=== PATIENT | male | born 1990 | race Caucasian/White ===

== ENCOUNTER → 2019-03-17 09:49 | Outpatient (CLI) | payer OTHER, SELFPAY ==
[2019-03-17 13:49] LABS: Liquefaction Semen YES (YES); Volume Semen 4.5 (1.0-5.0)
[2019-03-17 13:50] LABS: PH Semen 9 (7-8); Sperm Count 26 x10^6/mL (20-150); Sperm Morphology 65 %ABNORM (0-30); Sperm Motility 40% % Motile
== END ==
PROVIDERS: PCP Nurse Practitioner Family; Visit Provider Obstetrics & Gynecology
DX: N46.8 Other male infertility (principal)
CPT/HCPCS: 89320

== ENCOUNTER 2022-08-01 14:20 | Emergency (ER) | payer OTHER, SELFPAY ==
[2022-08-01 14:26] VITALS: BP 144/96; PULSE 101; RESP 16; TEMP 36.7; O2SAT 96; BMI 39.3
[2022-08-01 15:27] LABS: Add Manual Diff / Slide Review NO; Basophils Absolute Auto 100 /uL (0-100); Basophils Percent Auto 1.1 % (0-2); Eosinophils Absolute Auto 100 /uL (0-450); Eosinophils Percent Auto 2.2 % (2-4); Hematocrit 46.9 % (41-53); Hemoglobin 16.6 g/dL (13.5-17.5); Lymphocytes Absolute Auto 1800 /uL (1100-4500); Lymphocytes Percent Auto 27.1 % (25-40); Mean Corpuscular HGB Conc 35.4 % (30-36); Mean Corpuscular Hemoglobin 29.5 PG (26-34); Mean Corpuscular Volume 83.3 fL (80-100); Monocytes Absolute Auto 500 /uL (0-900); Monocytes Percent Auto 7.5 % (3-14); Neutrophils Absolute Auto 4100 /uL (1500-7000); Neutrophils Percent Auto 62.1 % (50-75); Platelet Count 224 X10^3/uL (150-400); Red Blood Cell Count 5.63 X10^6/uL (4.5-5.9); White Blood Cell Count 6.6 X10^3/uL (4.5-11.0)
[2022-08-01 15:45] LABS: Alanine Aminotransferase 311 IU/L (<50); Alkaline Phosphatase 63 U/L (38-126); Aspartate Aminotransferase 132 IU/L (17-59); BUN Creatinine Ratio 13.7 (6-22); Bilirubin Total 1.6 mg/dL (0.2-1.3); Blood Urea Nitrogen 10 mg/dL (9-20); Calcium 9.4 mg/dL (8.4-10.2); Carbon Dioxide 26 mmol/L (22-32); Chloride 101 mmol/L (98-107); Estimated Glomerular Filt Rate > 60 mL/min (>60); Glucose 83 mg/dL (70-100); HEMOLYSIS < 15 (0-50); Lipase 51 U/L (23-300); Potassium 3.8 mmol/L (3.4-5.1); Sodium 139 mmol/L (137-145)
--- NOTE | 2022-08-01 15:58 | DI.US.S_ITS ---
PROCEDURE: US ABDOMEN LIMITED INDICATIONS: ruq PAIN, cholelithiasis vs hepatic steatosis? TECHNIQUE: Real-time scanning was performed of the abdominal and retroperitoneal organs, with image documentation. COMPARISON: None. FINDINGS: Liver: The liver measures 15.5 cm in length and demonstrates increased echogenicity. Gallbladder: The gallbladder wall measures 2 mm in diameter. No stones, sludge, pericholecystic fluid, or sonographic Go sign. Biliary ducts: Intrahepatic bile ducts are non-dilated. Extrahepatic bile duct caliber measures 4 mm. Normal is 6-7 mm or less in diameter, or 10 mm or less post-cholecystectomy. Pancreas: Visualized portions of the pancreas are sonographically normal. IMPRESSION: 1. Increased hepatic echogenicity noted likely related to fatty infiltration of the liver but other sources of hepatocellular disease cannot be excluded. 2. No cholelithiasis or findings to suggest choledocholithiasis or acute cholecystitis. Dictated by: Claudette Jordan M.D. on 08/01/2022 at 17:13 Approved by: Claudette Jordan M.D. on 08/01/2022 at 17:14
--- NOTE | 2022-08-01 16:20 | ED_ITS ---
HPI - Abdominal Pain <MARGARITA Hurley - Last Filed: 08/01/22 19:31> General Chief Complaint: Abdominal Pain Stated Complaint: R ABD/back pain Time Seen by Provider: 08/01/22 15:58 Source: patient Mode of arrival: Ambulatory History of Present Illness HPI narrative: 32-year-old male who presents to the emergency department complaining of right upper quadrant pain with concern for gallbladder issue. He states that he was COVID positive on June 21, 2 Paxlovid, reports that he has not felt right since then, he was seen in the emergency department [facility] on July 14, followed up with his primary care provider, he was told that he has fatty liver. Reports that 4 days ago he had diarrhea for 2 days, has been taking Pepto- Bismol, endorses that his stool is dark but not black or bloody. He reports that it is loose and he thinks that there is grease in it. He expresses dizziness, feeling like he has poor reserve and no energy since his COVID infection. Patient states that he is concerned about pertussis because he has had post-tussive emesis a couple of times. He currently has a cough, congestion, right flank pain and nausea. Related Data Home Medications Medication Instructions Recorded Confirmed fexofenadine 180 mg tablet 180 mg PO QDAY ##0 02/09/11 Previous Rx's Medication Instructions Recorded hydrocodone 5 mg-acetaminophen 325 1 tab PO TID PRN pain #10 tabs 08/01/22 mg tablet hydroxyzine HCl 25 mg tablet 25 mg PO TID PRN anxiety/nausea 08/01/22 #20 tabs omeprazole 20 mg tablet,delayed 40 mg PO DAILY #60 tabs 08/01/22 release ondansetron 4 mg disintegrating 4 mg PO Q6-8H PRN nausea and 08/01/22 tablet vomiting #10 tabs sucralfate 1 gram tablet (Carafate) 1 g PO BID PRN heartburn #30 tabs 08/01/22 Review of Systems <MARGARITA Hurley - Last Filed: 08/01/22 19:31> Review of Systems ROS Unobtainable: All systems reviewed & are unremarkable except as noted in HPI and below Patient History <MARGARITA Hurley - Last Filed: 08/01/22 19:31> Social History Smoking Status: Never smoker Smoking Status: Never smoker Substance Use Type: does not use Exam <MARGARITA Hurley - Last Filed: 08/01/22 19:31> Narrative Exam Narrative: Reviewed vitals signs and nursing notes. General: cooperative, comfortable, in no acute distress, well groomed, afebrile HEENT: symmetrical facial expressions, moist mucous membranes, EOMI, congestion, without sinus tenderness, without anterior cervical lymphadenopathy, normal phonation Cardiovascular: regular rate and rhythm, no peripheral edema, warm extremities Respiratory: normal effort, able to speak in complete sentences, without wheezing, stridor, or abnormal breath sounds. No retractions or tachypnea. GI: abdomen soft, right upper quadrant is tender to palpation right CVA tenderness right sided abdominal tenderness in general without focal tenderness. Nontender to palpation, nondistended, without masses, rebound tenderness or exquisite tenderness with exam. MSK: moves all extremities, neurovascularly intact, no weakness, normal tone Skin: brisk capillary refill, without pallor or erythema Neuro: normal speech and cognition, A&O x3, ambulatory, clear speech Psych: mental status is grossly normal, anxious mood, normal affect, pleasant and cooperative Initial Vital Signs Initial Vital Signs: Vital Signs Temperature 98.1 F 08/01/22 14:26 Pulse Rate 101 H 08/01/22 14:26 Respiratory Rate 16 08/01/22 14:26 Blood Pressure 144/96 H 08/01/22 14:26 Pulse Oximetry 96 08/01/22 14:26 Oxygen Delivery Method 08/01/22 14:26 <Cuauhtemoc Sumner MD - Last Filed: 08/02/22 03:49> Initial Vital Signs Initial Vital Signs: Vital Signs Temperature 98.1 F 08/01/22 14:26 Pulse Rate 101 H 08/01/22 14:26 Respiratory Rate 16 08/01/22 14:26 Blood Pressure 144/96 H 08/01/22 14:26 Pulse Oximetry 96 08/01/22 14:26 Oxygen Delivery Method 08/01/22 14:26 Course <MARGARITA Hurley - Last Filed: 08/01/22 19:31> Orders Ordered: Discontinued Medications Acetaminophen (Acetaminophen 325 Mg Tablet) 975 mg PO NOW ONE Stop: 08/01/22 16:38 Last Admin: 08/01/22 16:48 Dose: 975 mg Documented By: RANDY Elmore Hydrox/Mg Hydrox/Simethicone 20 ml/ Lidocaine HCl 15 ml 0 ml PO NOW ONE Stop: 08/01/22 18:03 Last Admin: 08/01/22 18:18 Dose: 35 ml Documented By: RANDY Hydroxyzine Pamoate (Hydroxyzine Pamoate 25 Mg Capsule) 25 mg PO NOW ONE Stop: 08/01/22 16:38 Last Admin: 08/01/22 16:48 Dose: 25 mg Documented By: RANDY Sodium Chloride (Normal Saline 0.9%) 1,000 mls @ 1,000 mls/hr IV BOLUS ONE Stop: 08/01/22 18:14 Last Infusion: 08/01/22 18:25 Dose: 0 mls/hr Documented By: Admin: 08/01/22 17:26 Dose: 1,000 mls/hr Documented By: DAVID Ketorolac Tromethamine (Ketorolac 30 Mg/Ml Vial) 15 mg IV NOW ONE Stop: 08/01/22 16:01 Last Admin: 08/01/22 16:37 Dose: 15 mg Documented By: RANDY Ondansetron HCl (Ondansetron 4 Mg/2 Ml Inj) 4 mg IV NOW PRN PRN Reason: Nausea And Vomiting Last Admin: 08/01/22 16:37 Dose: 4 mg Documented By: RANDY Pantoprazole Sodium (Pantoprazole 40 Mg Vial) 40 mg IV NOW ONE Stop: 08/01/22 18:03 Last Admin: 08/01/22 18:19 Dose: 40 mg Documented By: RANDY Vital Signs Vital signs: Vital Signs - 8 hr 08/01/22 14:26 08/01/22 18:27 Temperature 98.1 F Pulse Rate 101 H 73 Respiratory Rate 16 18 Blood Pressure 144/96 H 134/85 Pulse Oximetry 96 96 Oxygen Delivery Method Room Air Room Air <Cuauhtemoc Sumner MD - Last Filed: 08/02/22 03:49> Orders Ordered: Discontinued Medications Acetaminophen (Acetaminophen 325 Mg Tablet) 975 mg PO NOW ONE Stop: 08/01/22 16:38 Last Admin: 08/01/22 16:48 Dose: 975 mg Documented By: KM Al Hydrox/Mg Hydrox/Simethicone 20 ml/ Lidocaine HCl 15 ml 0 ml PO NOW ONE Stop: 08/01/22 18:03 Last Admin: 08/01/22 18:18 Dose: 35 ml Documented By: RANDY Hydroxyzine Pamoate (Hydroxyzine Pamoate 25 Mg Capsule) 25 mg PO NOW ONE Stop: 08/01/22 16:38 Last Admin: 08/01/22 16:48 Dose: 25 mg Documented By: RANDY Sodium Chloride (Normal Saline 0.9%) 1,000 mls @ 1,000 mls/hr IV BOLUS ONE Stop: 08/01/22 18:14 Last Infusion: 08/01/22 18:25 Dose: 0 mls/hr Documented By: Admin: 08/01/22 17:26 Dose: 1,000 mls/hr Documented By: DAVID Ketorolac Tromethamine (Ketorolac 30 Mg/Ml Vial) 15 mg IV NOW ONE Stop: 08/01/22 16:01 Last Admin: 08/01/22 16:37 Dose: 15 mg Documented By: RANDY Ondansetron HCl (Ondansetron 4 Mg/2 Ml Inj) 4 mg IV NOW PRN PRN Reason: Nausea And Vomiting Last Admin: 08/01/22 16:37 Dose: 4 mg Documented By: RANDY Pantoprazole Sodium (Pantoprazole 40 Mg Vial) 40 mg IV NOW ONE Stop: 08/01/22 18:03 Last Admin: 08/01/22 18:19 Dose: 40 mg Documented By: RANDY Vital Signs Vital signs: Vital Signs - 8 hr 08/01/22 14:26 08/01/22 18:27 Temperature 98.1 F Pulse Rate 101 H 73 Respiratory Rate 16 18 Blood Pressure 144/96 H 134/85 Pulse Oximetry 96 96 Oxygen Delivery Method Room Air Room Air MDM - Abdominal Pain <Latoya Johnson SAND SCREENER OPERATOR - Last Filed: 08/01/22 19:31> Lab Data Result diagrams: 08/01/22 15:15 08/01/22 15:15 Labs: Lab Results 08/01/22 08/01/22 08/01/22 Range/Units 15:15 15:15 15:15 WBC 6.6 (4.5-11.0) X10^3/uL RBC 5.63 (4.5-5.9) X10^6/uL Hgb 16.6 (13.5-17.5) g/dL Hct 46.9 (41-53) % MCV 83.3 (80-100) fL MCH 29.5 (26-34) PG MCHC 35.4 (30-36) % RDW 14.0 (11.6-14.8) % Plt Count 224 (150-400) X10^3/uL Neut % (Auto) 62.1 (50-75) % Lymph % (Auto) 27.1 (25-40) % [place] % (Auto) 7.5 (3-14) % Eos % (Auto) 2.2 (2-4) % Baso % (Auto) 1.1 (0-2) % Neut # (Auto) 4100 (8590-8957) /uL Lymph # (Auto) 1800 (8526-1767) /uL [place] # (Auto) 500 (0-900) /uL Eos # (Auto) 100 (0-450) /uL Baso # (Auto) 100 (0-100) /uL Sodium 139 (137-145) mmol/L Potassium 3.8 (3.4-5.1) mmol/L Chloride 101 (98-107) mmol/L Carbon Dioxide 26 (22-32) mmol/L BUN 10 (9-20) mg/dL Creatinine 0.73 (0.66-1.25) mg/dL Estimated GFR > 60 (>60) mL/min BUN/Creatinine Ratio 13.7 (6-22) Glucose 83 (70-100) mg/dL Calcium 9.4 (8.4-10.2) mg/dL Total Bilirubin 1.6 H (0.2-1.3) mg/dL Conjugated Bilirubin (0.0-0.3) md/dL Unconjugated Bilirubin (0.0-1.1) mg/dL AST 132 H (17-59) IU/L ALT 311 H (<50) IU/L Alkaline Phosphatase 63 (38-126) U/L C-Reactive Protein < 0.5 (<1.0) mg/dL Total Protein 9.0 H (6.3-8.2) g/dL Lipase 51 (23-300) U/L Urine Color Urine Appearance Urine pH (4.5-8.0) Ur Specific [place] (1.000-1.035) Urine Protein (Negative) Urine Glucose (UA) (Negative) g/dL Urine Ketones (NEGATIVE) Urine Occult Blood (Negative) Urine Nitrate (Negative) Urine Bilirubin (NEGATIVE) Urine Urobilinogen (0.2) E.U./dL Ur Leukocyte Esterase (NEGATIVE) Urine RBC (0-5/HPF) Urine WBC (0-5/HPF) Urine Bacteria (None) Ur Culture Indicated? SARS-CoV-2 (PCR) (Negative) Influenza A (RT-PCR) (NEGATIVE) Influenza B (RT-PCR) (NEGATIVE) RSV (PCR) (Negative) 08/01/22 08/01/22 08/01/22 Range/Units 16:45 18:33 18:41 WBC (4.5-11.0) X10^3/uL RBC (4.5-5.9) X10^6/uL Hgb (13.5-17.5) g/dL Hct (41-53) % MCV (80-100) fL MCH (26-34) PG MCHC (30-36) % RDW (11.6-14.8) % Plt Count (150-400) X10^3/uL Neut % (Auto) (50-75) % Lymph % (Auto) (25-40) % [place] % (Auto) (3-14) % Eos % (Auto) (2-4) % Baso % (Auto) (0-2) % Neut # (Auto) (9681-0528) /uL Lymph # (Auto) (4958-7849) /uL [place] # (Auto) (0-900) /uL Eos # (Auto) (0-450) /uL Baso # (Auto) (0-100) /uL Sodium (137-145) mmol/L Potassium (3.4-5.1) mmol/L Chloride (98-107) mmol/L Carbon Dioxide (22-32) mmol/L BUN (9-20) mg/dL Creatinine (0.66-1.25) mg/dL Estimated GFR (>60) mL/min BUN/Creatinine Ratio (6-22) Glucose (70-100) mg/dL Calcium (8.4-10.2) mg/dL Total Bilirubin 1.5 H (0.2-1.3) mg/dL Conjugated Bilirubin 0.0 (0.0-0.3) md/dL Unconjugated Bilirubin 1.1 (0.0-1.1) mg/dL AST 111 H (17-59) IU/L ALT 268 H (<50) IU/L Alkaline Phosphatase 54 (38-126) U/L C-Reactive Protein (<1.0) mg/dL Total Protein 7.9 (6.3-8.2) g/dL Lipase (23-300) U/L Urine Color Yellow Urine Appearance Clear Urine pH 6.5 (4.5-8.0) Ur Specific [place] 1.010 (1.000-1.035) Urine Protein Negative (Negative) Urine Glucose (UA) Negative (Negative) g/dL Urine Ketones Trace H (NEGATIVE) Urine Occult Blood Negative (Negative) Urine Nitrate Negative (Negative) Urine Bilirubin Negative (NEGATIVE) Urine Urobilinogen 1.0 (0.2) E.U./dL Ur Leukocyte Esterase Negative (NEGATIVE) Urine RBC None seen (0-5/HPF) Urine WBC None seen (0-5/HPF) Urine Bacteria None seen (None) Ur Culture Indicated? Cult not indicated SARS-CoV-2 (PCR) Negative (Negative) Influenza A (RT-PCR) Flu a negative (NEGATIVE) Influenza B (RT-PCR) Flu b negative (NEGATIVE) RSV (PCR) Negative (Negative) Point of care testing: Urine Dip Bedside Urine Glucose Negative Bedside Urine Bilirubin - Negative Bedside Urine Ketone +/- 5 Urine Specific [place] 1.015 Bedside Urine Occult Blood - Negative Bedside Urine pH 6.0 Bedside Urine Protein - Negative Bedside Urine Urobilinogen - Negative Bedside Urine Nitrite - Negative Bedside Urine Leukocytes - Negative Esterase Imaging Data CT scan - abdomen/pelvis: Radiologist's Impression: PROCEDURE:? CT ABDOMEN PELVIS W CON ? INDICATIONS:? rt flank pain, right upper quadrant tenderness mild tenderne ? TECHNIQUE:? After the administration of oral and IV contrast, axial sections were acquired from the lung bases to the pubic symphysis.? Coronal and sagittal reformats were performed.? For radiation dose reduction, the following was used:? automated exposure control, adjustment of mA and/or kV according to patient size. ? COMPARISON:? [facility], , US ABDOMEN LIMITED, 08/01/2022, 16:11.? [facility], , US ABDOMEN LIMITED, 07/27/2022, 9:43.? [facility], CT, CT ABDOMEN PELVIS WITH CONTRAST, 07/14/2022, 18:56. ? FINDINGS:? Image quality:? Excellent.? ? Lung bases:? Unremarkable.? ? Heart:? No significant findings. ? ? ABDOMEN: Liver:? Normal size.? Mild hepatic steatosis.? ? Gallbladder:? Unremarkable.? ? Biliary ducts:? Unremarkable.? ? Pancreas:? Unremarkable.? ? Spleen:? Unremarkable.? ? Adrenal Glands:? Unremarkable.? ? Kidneys and Ureters:? Unremarkable.? ? ? Stomach and Bowel:? Stomach, small bowel loops, and colon are normal in caliber.? Appendix is normal.? There are scattered colonic diverticula.? No acute diverticulitis. Peritoneum:? No abnormal intraperitoneal fluid.? No free air.? ? Ventral Wall: ? No hernia.? Abdominal Nodes:? No retroperitoneal or mesenteric adenopathy by size criteria.? Small mesenteric lymph nodes are seen in the right lower quadrant, nonspecific. Vessels:? Aorta and inferior vena cava are normal in size.? ? PELVIS: Pelvic Organs:? Unremarkable.? ? Bladder:? Unremarkable.? ? Pelvic Nodes: No enlarged lymph nodes.? Miscellaneous: No inguinal hernias are seen. ? ? ? Bones:? Unremarkable.? IMPRESSION:? ? 1. A cause for right side abdominal pain is not identified. 2. Normal appendix. 3. Hepatic steatosis.? ? ? Dictated by: Mera Figueroa M.D. on 08/01/2022 at 16:28 ? ? Approved by: Mera Figueroa M.D. on 08/01/2022 at 16:32 ? US - abdomen: Radiologist's Impression: PROCEDURE:? US ABDOMEN LIMITED ? INDICATIONS:? ruq PAIN, cholelithiasis vs hepatic steatosis? ? TECHNIQUE:? Real-time scanning was performed of the abdominal and retroperitoneal organs, with image documentation.? ? COMPARISON:? None. ? FINDINGS:? ? Liver:? The liver measures 15.5 cm in length and demonstrates increased echogeni city. ? Gallbladder:? The gallbladder wall measures 2 mm in diameter. No stones, sludge, pericholecystic fluid, or sonographic Go sign. ? ? Biliary ducts:? Intrahepatic bile ducts are non-dilated.? Extrahepatic bile duct caliber measures 4 mm.? Normal is 6-7 mm or less in diameter, or 10 mm or less post-cholecystectomy.? ? Pancreas:? Visualized portions of the pancreas are sonographically normal.? ? ? IMPRESSION:? ? 1. Increased hepatic echogenicity noted likely related to fatty infiltration of the liver but other sources of hepatocellular disease cannot be excluded.? ? 2. No cholelithiasis or findings to suggest choledocholithiasis or acute cholecystitis. ? ? ? Dictated by: Claudette Jordan M.D. on 08/01/2022 at 17:13 ? ? Approved by: Cluadette Jordan M.D. on 08/01/2022 at 17:14 ? MDM Narrative Medical decision making narrative: CC: 32-year-old male who presents to the emergency department complaining of right upper quadrant pain with concern for gallbladder issue. He states that he was COVID positive on June 21, 2 Paxlovid, reports that he has not felt right since then, he was seen in the emergency department [facility] on July 14, followed up with his primary care provider, he was told that he has fatty liver. Reports that 4 days ago he had diarrhea for 2 days, has been taking Pepto- Bismol, endorses that his stool is dark but not black or bloody. He reports that it is loose and he thinks that there is grease in it. He expresses dizziness, feeling like he has poor reserve and no energy since his COVID infection. Patient states that he is concerned about pertussis because he has had post-tussive emesis a couple of times. He currently has a cough, congestion, right flank pain and nausea. Differential diagnoses include, but are not limited to: Viral upper respiratory illness including COVID, influenza or RSV, nephrolithiasis cholecystitis, cholelithiasis, pancreatitis, GERD, gastric ulcer, post COVID syndrome hepatic steatosis, acute viral hepatitis. I have reviewed the patient's vital signs and nursing notes as well as prior records if available. Lab test results independently reviewed, pertinent findings: Patient's lab work is significant for elevated liver enzymes including total bilirubin of 1.6, AST of 132, ALT of 311, normal alkaline phosphatase. No prior lab work to compare to. CBC is unremarkable. Urine dip showed trace ketones without other abnormality, respiratory panel is negative for all tested viruses. CRP is not elevated at 0.5. Repeat lab work after 1 L of normal saline shows LFTs Acute hepatitis panel is pending, likely sendout My imaging interpretation: Right upper quadrant ultrasound, CT abdomen pelvis, ultrasound with increased hepatic echogenicity noted related to fatty infiltration liver, no cholelithiasis or findings suggest choledocholithiasis or cholecystitis. Re-evaluations/Ongoing course of care: 1600 patient went to ultrasound and was unavailable in the room, came back at 1620 and I saw him then. Patient is very anxious, states that he is had posttussive emesis, upper respiratory cough and congestion since he was positive for COVID in June 2022. He has a at home, states he is not sleeping well, feels worse every day. States that he is afraid of dying. He had a fever last night of 101 at 02:00. Patient has known fatty liver as this was told to him by [facility] emergency department 2 weeks ago on . Ultrasound was negative for cholelithiasis, cholecystitis or other acute etiology. CT abdo men pelvis was ordered with patient's new assessment findings. 172 CT report is pending, patient was given 1 L of normal saline for dehydration and pain, hydroxyzine, Toradol, Tylenol also given for pain/anxiety 1800 patient expresses improved pain, improved anxiety, states that he is feeling much better, 1 L of normal saline is mostly infused, he expresses dyspepsia, epigastric pain and burning heartburn symptom, states this has been bothersome lately. Abdominal CT shows normal appendix, without identifiable cause for right flank pain or right upper abdominal pain, it does show hepatic steatosis 1900 reassessed patient, he states that he feels much better, denies nausea, denies worsening pain, states that the Zofran helped his symptoms the most and his epigastric pain and burning have gone away. His lab work came back after IV fluid resuscitation showing improved total bilirubin down to 1.5, AST down to 111, ALT down to 268. Low suspicion for acute hepatitis although it remains high in the differential since the lab work has not returned. Patient's symptoms have grossly improved and he is ready for discharge home. He likely has GERD as his heartburn symptom improved with GI cocktail, he was treated with Protonix IV. Will treat him home with 40 mg of omeprazole daily, encourage hydration, prescribed Carafate for epigastric pain. He may benefit from upper endoscopy if his symptoms persist. Hepatic steatosis is most likely the diagnosis however this hepatitis or related to his medications that he has been on. Normal lipase, no evidence of pancreatitis on CT imaging. Encourage patient to follow-up with his PCP, he states that that provider is difficult to get a hold it. Patient's symptoms improved over duration of stay with above-stated therapies. Disposition: see below, along with detailed discharge instructions that have been reviewed with the patient as well as indications for ED re-evaluation and additional outpatient follow-up. Questions are addressed and there is agreement with the plan and for follow-up. Patient is appropriate for outpatient management. MIPS: This encounter doesn't have any diagnosis associated with MIPS criteria. I, MARGARITA Jc, personally performed the services described in the documentation, and it accurately records my words and actions. I collaborated with the ED attending physician for ROSY level 2, 3, and some level 4s as appropriate. <Cuauhtemoc Sumner MD - Last Filed: 08/02/22 03:49> Lab Data Labs: Lab Results 08/01/22 08/01/22 08/01/22 Range/Units 15:15 15:15 15:15 WBC 6.6 (4.5-11.0) X10^3/uL RBC 5.63 (4.5-5.9) X10^6/uL Hgb 16.6 (13.5-17.5) g/dL Hct 46.9 (41-53) % MCV 83.3 (80-100) fL MCH 29.5 (26-34) PG MCHC 35.4 (30-36) % RDW 14.0 (11.6-14.8) % Plt Count 224 (150-400) X10^3/uL Neut % (Auto) 62.1 (50-75) % Lymph % (Auto) 27.1 (25-40) % [place] % (Auto) 7.5 (3-14) % Eos % (Auto) 2.2 (2-4) % Baso % (Auto) 1.1 (0-2) % Neut # (Auto) 4100 (6902-0999) /uL Lymph # (Auto) 1800 (5300-2257) /uL [place] # (Auto) 500 (0-900) /uL Eos # (Auto) 100 (0-450) /uL Baso # (Auto) 100 (0-100) /uL Sodium 139 (137-145) mmol/L Potassium 3.8 (3.4-5.1) mmol/L Chloride 101 (98-107) mmol/L Carbon Dioxide 26 (22-32) mmol/L BUN 10 (9-20) mg/dL Creatinine 0.73 (0.66-1.25) mg/dL Estimated GFR > 60 (>60) mL/min BUN/Creatinine Ratio 13.7 (6-22) Glucose 83 (70-100) mg/dL Calcium 9.4 (8.4-10.2) mg/dL Total Bilirubin 1.6 H (0.2-1.3) mg/dL Conjugated Bilirubin (0.0-0.3) md/dL Unconjugated Bilirubin (0.0-1.1) mg/dL AST 132 H (17-59) IU/L ALT 311 H (<50) IU/L Alkaline Phosphatase 63 (38-126) U/L C-Reactive Protein < 0.5 (<1.0) mg/dL Total Protein 9.0 H (6.3-8.2) g/dL Lipase 51 (23-300) U/L Urine Color Urine Appearance Urine pH (4.5-8.0) Ur Specific [place] (1.000-1.035) Urine Protein (Negative) Urine Glucose (UA) (Negative) g/dL Urine Ketones (NEGATIVE) Urine Occult Blood (Negative) Urine Nitrate (Negative) Urine Bilirubin (NEGATIVE) Urine Urobilinogen (0.2) E.U./dL Ur Leukocyte Esterase (NEGATIVE) Urine RBC (0-5/HPF) Urine WBC (0-5/HPF) Urine Bacteria (None) Ur Culture Indicated? SARS-CoV-2 (PCR) (Negative) Influenza A (RT-PCR) (NEGATIVE) Influenza B (RT-PCR) (NEGATIVE) RSV (PCR) (Negative) 08/01/22 08/01/22 08/01/22 Range/Units 16:45 18:33 18:41 WBC (4.5-11.0) X10^3/uL RBC (4.5-5.9) X10^6/uL Hgb (13.5-17.5) g/dL Hct (41-53) % MCV (80-100) fL MCH (26-34) PG MCHC (30-36) % RDW (11.6-14.8) % Plt Count (150-400) X10^3/uL Neut % (Auto) (50-75) % Lymph % (Auto) (25-40) % [place] % (Auto) (3-14) % Eos % (Auto) (2-4) % Baso % (Auto) (0-2) % Neut # (Auto) (7368-4513) /uL Lymph # (Auto) (2836-7248) /uL [place] # (Auto) (0-900) /uL Eos # (Auto) (0-450) /uL Baso # (Auto) (0-100) /uL Sodium (137-145) mmol/L Potassium (3.4-5.1) mmol/L Chloride (98-107) mmol/L Carbon Dioxide (22-32) mmol/L BUN (9-20) mg/dL Creatinine (0.66-1.25) mg/dL Estimated GFR (>60) mL/min BUN/Creatinine Ratio (6-22) Glucose (70-100) mg/dL Calcium (8.4-10.2) mg/dL Total Bilirubin 1.5 H (0.2-1.3) mg/dL Conjugated Bilirubin 0.0 (0.0-0.3) md/dL Unconjugated Bilirubin 1.1 (0.0-1.1) mg/dL AST 111 H (17-59) IU/L ALT 268 H (<50) IU/L Alkaline Phosphatase 54 (38-126) U/L C-Reactive Protein (<1.0) mg/dL Total Protein 7.9 (6.3-8.2) g/dL Lipase (23-300) U/L Urine Color Yellow Urine Appearance Clear Urine pH 6.5 (4.5-8.0) Ur Specific [place] 1.010 (1.000-1.035) Urine Protein Negative (Negative) Urine Glucose (UA) Negative (Negative) g/dL Urine Ketones Trace H (NEGATIVE) Urine Occult Blood Negative (Negative) Urine Nitrate Negative (Negative) Urine Bilirubin Negative (NEGATIVE) Urine Urobilinogen 1.0 (0.2) E.U./dL Ur Leukocyte Esterase Negative (NEGATIVE) Urine RBC None seen (0-5/HPF) Urine WBC None seen (0-5/HPF) Urine Bacteria None seen (None) Ur Culture Indicated? Cult not indicated SARS-CoV-2 (PCR) Negative (Negative) Influenza A (RT-PCR) Flu a negative (NEGATIVE) Influenza B (RT-PCR) Flu b negative (NEGATIVE) RSV (PCR) Negative (Negative) Point of care testing: Urine Dip Bedside Urine Glucose Negative Bedside Urine Bilirubin - Negative Bedside Urine Ketone +/- 5 Urine Specific [place] 1.015 Bedside Urine Occult Blood - Negative Bedside Urine pH 6.0 Bedside Urine Protein - Negative Bedside Urine Urobilinogen - Negative Bedside Urine Nitrite - Negative Bedside Urine Leukocytes - Negative Esterase Discharge Plan Departure Patient Disposition: Home Clinical Impression: Fatty liver, Elevated liver enzymes, Heartburn Abdominal pain Qualifiers: Abdominal location: unspecified location Qualified Code(s): R10.9 - Unspecified abdominal pain Activity Restrictions/Additional Instructions: *You have been diagnosed with elevated liver enzymes, hepatic steatosis/fatty liver ultrasound and CT without other abnormality. No abnormalities visualized within the gallbladder or surrounding, urine is negative for infection, your liver enzymes and all of those values improved after hydration. Please go home and drink plenty of water, follow-up with your regular doctor about your lab work, have records sent over they are unable to visualize them. 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 Please do not take more than 4 g of Tylenol in 24 hours, 650 mg every 6 hours should be adequate with occasional pain pill as needed. Please avoid ibuprofen if you have heartburn as it can erode the mucosal layer. Use Carafate like Tums or Maalox to help coat your stomach. I hope you feel better soon, I am glad that you came in, glad that we ruled out dangerous things, we will call you if some of the send out labs come back with concern. Please rest as much as you can, you need it to heal. I hope you feel better soon, return for any worsening *What to do: *Please continue to take your regular medications as directed. [x ] New medication prescriptions sent to your pharmacy: [[facility]] [ ] New medication written as a paper prescription [ ] No new medications given *Please follow up with your primary care provider in 2-3 days, call for an appointment. Let them know you were seen in the Emergency Department and that we asked that you be seen for follow-up. We will electronically transmit a record of today's note if your PCP is in our system *If you do not have a primary care provider please contact [phone] to establish care with one of the [facility] primary care providers. *Return to Emergency Department if you should have any new, worsening, or concerning symptoms, such as [fever greater than 101F, chills, worsening pain, persistent vomiting or other bothersome symptoms]. Prescriptions: New omeprazole 20 mg tablet,delayed release (DR/EC) 40 mg PO DAILY Qty: 60 0RF hydroxyzine HCl 25 mg tablet 25 mg PO TID PRN (Reason: anxiety/nausea) Qty: 20 0RF ondansetron 4 mg tablet,disintegrating 4 mg PO Q6-8H PRN (Reason: nausea and vomiting) Qty: 10 0RF sucralfate [Carafate] 1 gram tablet 1 g PO BID PRN (Reason: heartburn) Qty: 30 0RF hydrocodone-acetaminophen 5-325 mg tablet 1 tab PO TID PRN (Reason: pain) Qty: 10 0RF No Action fexofenadine 180 MG tablet 180 mg PO QDAY Qty: 0 Referrals: Richard Kong PA-C [Non-Staff] - 5-7 days Stand Alone Forms: Patient Portal/API <Cuauhtemoc Sumner MD - Last Filed: 08/02/22 03:49> Cosign ED Attending Cosignature Attestation: I was immediately available in the department for consultation. ?This documentation has been reviewed and I agree with assessment and plan. Supervised by Cuauhtemoc Sumner MD
--- NOTE | 2022-08-01 16:28 | DI.CT.S_ITS ---
PROCEDURE: CT ABDOMEN PELVIS W CON INDICATIONS: rt flank pain, right upper quadrant tenderness mild tenderne TECHNIQUE: After the administration of oral and IV contrast, axial sections were acquired from the lung bases to the pubic symphysis. Coronal and sagittal reformats were performed. For radiation dose reduction, the following was used: automated exposure control, adjustment of mA and/or kV according to patient size. COMPARISON: [facility], US, US ABDOMEN LIMITED, 08/01/2022, 16:11. [facility], US, US ABDOMEN LIMITED, 07/27/2022, 9:43. [facility], CT, CT ABDOMEN PELVIS WITH CONTRAST, 07/14/2022, 18:56. FINDINGS: Image quality: Excellent. Lung bases: Unremarkable. Heart: No significant findings. ABDOMEN: Liver: Normal size. Mild hepatic steatosis. Gallbladder: Unremarkable. Biliary ducts: Unremarkable. Pancreas: Unremarkable. Spleen: Unremarkable. Adrenal Glands: Unremarkable. Kidneys and Ureters: Unremarkable. Stomach and Bowel: Stomach, small bowel loops, and colon are normal in caliber. Appendix is normal. There are scattered colonic diverticula. No acute diverticulitis. Peritoneum: No abnormal intraperitoneal fluid. No free air. Ventral Wall: No hernia. Abdominal Nodes: No retroperitoneal or mesenteric adenopathy by size criteria. Small mesenteric lymph nodes are seen in the right lower quadrant, nonspecific. Vessels: Aorta and inferior vena cava are normal in size. PELVIS: Pelvic Organs: Unremarkable. Bladder: Unremarkable. Pelvic Nodes: No enlarged lymph nodes. Miscellaneous: No inguinal hernias are seen. Bones: Unremarkable. IMPRESSION: 1. A cause for right side abdominal pain is not identified. 2. Normal appendix. 3. Hepatic steatosis. Dictated by: Mera Figueroa M.D. on 08/01/2022 at 16:28 Approved by: Mera Figueroa M.D. on 08/01/2022 at 16:32
[2022-08-01] MEDS: KETOROLAC 30 MG/ML VIAL 15 MG IV (16:37)
[2022-08-01] MEDS: ONDANSETRON 4 MG/2 ML INJ IV (16:37)
[2022-08-01] MEDS: hydrOXYzine pamoate 25 MG CAPSULE PO (16:48)
[2022-08-01] MEDS: ACETAMINOPHEN 325 MG TABLET 975 MG PO (16:48)
[2022-08-01] MEDS: SODIUM CHLORIDE 0.9% 1,000 ML 1000 ML IV (17:26)
[2022-08-01 17:54] LABS: Influenza A - CEPHEID Flu A NEGATIVE (NEGATIVE); Influenza B - CEPHEID Flu B NEGATIVE (NEGATIVE); Respiratory Syncytial Virus Negative (Negative)
[2022-08-01 17:55] LABS: COVID-19 CEPHEID 4-PLEX PCR Negative (Negative)
[2022-08-01 17:56] LABS: C-Reactive Protein Quant < 0.5 mg/dL (<1.0)
[2022-08-01] MEDS: MAG HYDROX/ALUMINUM/SIMETH SUS 20 ML, LIDOCAINE VISCOUS 2% 15 ML PO (18:18)
[2022-08-01] MEDS: PANTOPRAZOLE 40 MG VIAL IV (18:19)
[2022-08-01 18:27] VITALS: BP 134/85; PULSE 73; RESP 18; O2SAT 96
[2022-08-01 18:36] LABS: Appearance Urine UA CLEAR; Bilirubin Urine UA NEGATIVE (NEGATIVE); Color Urine UA YELLOW; Glucose Urine UA NEGATIVE (Negative); Ketones Urine UA TRACE (NEGATIVE); Leukocyte Esterase Urine UA NEGATIVE (NEGATIVE); Nitrite Urine UA NEGATIVE (Negative); Occult Blood Urine UA NEGATIVE (Negative); Protein Urine UA NEGATIVE (Negative); pH Urine UA 6.5 (4.5-8.0)
[2022-08-01 18:45] LABS: Bacteria Urine None Seen; Culture Indicated Urine Cult Not Indicated; RBC Urine None Seen (0-5/HPF); WBC Urine None Seen (0-5/HPF)
[2022-08-01 19:06] LABS: Alanine Aminotransferase 268 IU/L (<50); Alkaline Phosphatase 54 U/L (38-126); Aspartate Aminotransferase 111 IU/L (17-59); Bilirubin Total 1.5 mg/dL (0.2-1.3); Bilirubin Unconjugated 1.1 mg/dL (0.0-1.1); Total Protein 7.9 g/dL (6.3-8.2)
[2022-08-01 19:25] VITALS: BP 132/84; PULSE 78; RESP 18; TEMP 36.6; O2SAT 98
[2022-08-03 16:30] LABS: Albumin 4.7 g/dL (3.5-5.0); Albumin Globulin Ratio 1.1 (1.0-2.8); Globulin 4.3 g/dL (1.7-4.1)
[2022-08-03 17:49] LABS: Albumin 4.1 g/dL (3.5-5.0); Albumin Globulin Ratio 1.1 (1.0-2.8); Globulin 3.8 g/dL (1.7-4.1); HEMOLYSIS 24 (0-50)
[2022-08-04 01:36] LABS: HBsAg Screen Negative (Negative); Hepatitis A Antibody IgM Negative (Negative); Hepatitis B Core Antibody IgM Negative (Negative); Hepatitis C Antibody <0.1 s/co ratio (0.0-0.9)
== END 2022-08-01 19:27 | disposition home or self-care (01) ==
PROVIDERS: Emergency Medicine; Emergency Provider Nurse Practitioner Critical Care Medicine; PCP Nurse Practitioner Family
DX: R10.11 Right upper quadrant pain (principal); K76.0 Fatty (change of) liver, not elsewhere classified; R74.8 Abnormal levels of other serum enzymes; R12 Heartburn; Z86.16 Personal history of COVID-19; Z20.822 Contact with and (suspected) exposure to COVID-19
CPT/HCPCS: 0241U; 36415; 74177; 76705; 80053; 80074; 80076; 81001; 81003; 83690; 85025; 86140; 96361; 96374; 96375; 99284; C9113; J1885; J2405; Q9967

== ENCOUNTER 2022-08-19 18:18 | Observation (INO) | payer OTHER, SELFPAY ==
[2022-08-19] VITALS (10 sets, daily range): BP systolic 124–153; BP diastolic 79–104; PULSE 67–103; RESP 18–20; TEMP 36.1–36.9; O2SAT 94–99; BMI 35.2
[2022-08-19 20:04] LABS: Add Manual Diff / Slide Review NO; Basophils Absolute Auto 0 /uL (0-100); Basophils Percent Auto 0.6 % (0-2); Eosinophils Absolute Auto 200 /uL (0-450); Eosinophils Percent Auto 2.4 % (2-4); Hematocrit 45.7 % (41-53); Hemoglobin 16.2 g/dL (13.5-17.5); Lymphocytes Absolute Auto 1700 /uL (1100-4500); Lymphocytes Percent Auto 23.4 % (25-40); Mean Corpuscular HGB Conc 35.4 % (30-36); Mean Corpuscular Hemoglobin 29.5 PG (26-34); Mean Corpuscular Volume 83.4 fL (80-100); Monocytes Absolute Auto 400 /uL (0-900); Monocytes Percent Auto 5.3 % (3-14); Neutrophils Absolute Auto 4900 /uL (1500-7000); Neutrophils Percent Auto 68.3 % (50-75); Platelet Count 207 X10^3/uL (150-400); Red Blood Cell Count 5.47 X10^6/uL (4.5-5.9); Red Cell Distribution Width 13.9 % (11.6-14.8); White Blood Cell Count 7.2 X10^3/uL (4.5-11.0)
[2022-08-19 20:16] LABS: Alanine Aminotransferase 159 IU/L (<50); Albumin 4.4 g/dL (3.5-5.0); Albumin Globulin Ratio 1.2 (1.0-2.8); Alkaline Phosphatase 67 U/L (38-126); Aspartate Aminotransferase 75 IU/L (17-59); BUN Creatinine Ratio 14.9 (6-22); Bilirubin Total 0.9 mg/dL (0.2-1.3); Blood Urea Nitrogen 10 mg/dL (9-20); Calcium 9.3 mg/dL (8.4-10.2); Carbon Dioxide 27 mmol/L (22-32); Chloride 100 mmol/L (98-107); Estimated Glomerular Filt Rate > 60 mL/min (>60); Globulin 3.8 g/dL (1.7-4.1); Glucose 91 mg/dL (70-100); HEMOLYSIS 22 (0-50); Lipase 58 U/L (23-300); Potassium 3.9 mmol/L (3.4-5.1); Sodium 139 mmol/L (137-145); Total Protein 8.2 g/dL (6.3-8.2)
--- NOTE | 2022-08-19 20:35 | ED_ITS ---
HPI - Nausea/Vomiting/Diarrhea General Chief complaint: Nausea/Vomiting/Diarrhea Stated complaint: nausea/tingle in arms/head pain x2 hours Time Seen by Provider: 08/19/22 20:35 Source: patient Mode of arrival: Ambulatory History of Present Illness HPI Narrative: 32-year-old gentleman who had no significant medical problems until COVID in fection in June 2 months ago and the of his son. He complains of significantly increased anxiety for which he is prescribed hydroxyzine and if he becomes nauseated he has Zofran. Did this afternoon he describes sitting in his chair increased nausea he took hydroxyzine the nausea increased he actually had an episode of emesis. He sat back down in his chair took a Zofran and then noted that the left side of his face was numb and felt different his was concerned that the left side of his face was not moving at all while he was talking as well as some mild confusion. Describes some tingling bilaterally in the forearms and hands but on the left side this progressed to significant decreased sensation to the point he could not feel his touching his left arm. Describes a bit of dizziness at the time and some mild chest pressure. Complains of right-sided temporal headache that felt like there was ?liquid rolling around inside his head? he notes that he does not typically get headaches and has never had a migraine headache. By the time he got to the emergency room all of the neurologic symptoms have improved significantly including the mild confusion as reported by his still continues to complain of fatigue. He does note that since his COVID infection in May he is had random fevers, nausea depression and anxiety all new for him. He also notes that this afternoon he had a temperature of 102? at the time of the event. Having no other infectious etiology complaints. Has no abdominal pain vomiting or diarrhea. He has not noticed any palpitations. Never had similar symptoms. Related Data Home Medications Medication Instructions Recorded Confirmed fexofenadine 180 mg tablet 180 mg PO QDAY ##0 02/09/11 Previous Rx's Medication Instructions Recorded hydrocodone 5 mg-acetaminophen 325 1 tab PO TID PRN pain #10 tabs 08/01/22 mg tablet hydroxyzine HCl 25 mg tablet 25 mg PO TID PRN anxiety/nausea 08/01/22 #20 tabs omeprazole 20 mg tablet,delayed 40 mg PO DAILY #60 tabs 08/01/22 release ondansetron 4 mg disintegrating 4 mg PO Q6-8H PRN nausea and 08/01/22 tablet vomiting #10 tabs sucralfate 1 gram tablet (Carafate) 1 g PO BID PRN heartburn #30 tabs 08/01/22 Allergies Allergy/AdvReac Type Severity Reaction Status Date / Time No Known Drug Allergies Allergy Verified 08/19/22 19:43 Review of Systems Review of Systems Narrative: Remainder of complete review of systems is otherwise unremarkable except for that included in the HPI. Patient History Social History Smoking Status: Never smoker Smoking Status: Never smoker alcohol intake frequency: 0-2 drinks per day Substance Use Type: does not use Exam Initial Vital Signs Initial Vital Signs: Vital Signs Temperature 98.5 F 08/19/22 18:25 Pulse Rate 103 H 08/19/22 18:25 Respiratory Rate 20 08/19/22 18:25 Blood Pressure 153/104 H 08/19/22 18:25 Pulse Oximetry 97 08/19/22 18:25 Oxygen Delivery Method 08/19/22 18:25 General: Healthy appearing, in no acute distress. Able to give a complete and coherent history. Well-nourished well-developed HEENT: Moist mucous membranes, normal sclera with reactive pupils, symmetrical and smooth extraocular eye movement. No facial droop Neck: No JVD, supple Respiratory: Lungs are clear to auscultation, no wheezing no rales no rhonchi. Full and symmetrical air movement Cardiac: Regular rate and rhythm no murmurs no bruits Abdomen: Soft, nontender, good bowel tones, no flank pain Skin: Warm and dry, no rashes Neurologic: NIH score is 0 however there are still some subtle findings that are appreciated. He has some minor difficulty lifting his left leg and some minor clumsiness in the left leg and the left hand not significant enough to meet criteria for full ataxia. When standing he is less stable standing on his left foot and has a mildly positive Romberg test. Extremities: No trauma, well perfused Psych: Cooperative, mildly anxious but appropriate insight and affect Course Orders Ordered: ED Orders 08/19/22 19:58 Complete Blood Count AUTO DIFF Stat Comprehensive Metabolic Panel Stat Ethanol (ETOH) Stat Lipase Stat Partial Thromboplastin Time Stat Prothrombin Time INR Stat Troponin & CK Cardiac Panel Stat 08/19/22 20:08 Urinalysis and Microscopic Stat Urine Drug Screen, Rapid Stat 08/19/22 20:52 CT head/brain wo con Stat 08/19/22 20:53 EKG-12 Lead Stat 08/19/22 20:54 CT angio head and neck Stat 08/19/22 21:21 COVID19 -Nasal RAPID/Pre-Proc Stat Vital Signs Vital signs: Vital Signs - 8 hr 08/19/22 18:25 08/19/22 19:33 08/19/22 19:33 Temperature 98.5 F Pulse Rate 103 H 78 Respiratory Rate 20 Blood Pressure 153/104 H 140/88 Pulse Oximetry 97 97 Oxygen Delivery Method Room Air Room Air 08/19/22 20:02 08/19/22 20:03 08/19/22 20:03 Temperature Pulse Rate 74 74 Respiratory Rate Blood Pressure 140/96 H Pulse Oximetry 99 97 Oxygen Delivery Method Room Air Room Air 08/19/22 20:30 08/19/22 20:30 08/19/22 21:00 Temperature Pulse Rate 67 Respiratory Rate Blood Pressure 134/84 152/94 H Pulse Oximetry 96 Oxygen Delivery Method Room Air 08/19/22 21:00 08/19/22 21:30 08/19/22 21:30 Temperature Pulse Rate 81 71 Respiratory Rate Blood Pressure 139/85 Pulse Oximetry 98 95 Oxygen Delivery Method Room Air Room Air MDM - Nausea/Vomiting/Diarrhea Lab Data 08/19/22 19:58 08/19/22 19:58 Labs: Lab Results 08/19/22 08/19/22 08/19/22 Range/Units 19:58 19:58 19:58 WBC 7.2 (4.5-11.0) X10^3/uL RBC 5.47 (4.5-5.9) X10^6/uL Hgb 16.2 (13.5-17.5) g/dL Hct 45.7 (41-53) % MCV 83.4 (80-100) fL MCH 29.5 (26-34) PG MCHC 35.4 (30-36) % RDW 13.9 (11.6-14.8) % Plt Count 207 (150-400) X10^3/uL Neut % (Auto) 68.3 (50-75) % Lymph % (Auto) 23.4 L (25-40) % [place] % (Auto) 5.3 (3-14) % Eos % (Auto) 2.4 (2-4) % Baso % (Auto) 0.6 (0-2) % Neut # (Auto) 4900 (7843-3209) /uL Lymph # (Auto) 1700 (6334-2487) /uL [place] # (Auto) 400 (0-900) /uL Eos # (Auto) 200 (0-450) /uL Baso # (Auto) 0 (0-100) /uL PT 12.9 H (10.1-12.7) SECONDS INR 1.1 (0.9-1.3) APTT 32 (26-36) SECONDS Sodium 139 (137-145) mmol/L Potassium 3.9 (3.4-5.1) mmol/L Chloride 100 (98-107) mmol/L Carbon Dioxide 27 (22-32) mmol/L BUN 10 (9-20) mg/dL Creatinine 0.67 (0.66-1.25) mg/dL Estimated GFR > 60 (>60) mL/min BUN/Creatinine Ratio 14.9 (6-22) Glucose 91 (70-100) mg/dL Calcium 9.3 (8.4-10.2) mg/dL Total Bilirubin 0.9 (0.2-1.3) mg/dL AST 75 H (17-59) IU/L ALT 159 H (<50) IU/L Alkaline Phosphatase 67 (38-126) U/L Total Creatine Kinase (55-170) U/L CK-MB (CK-2) (<2.37) ng/mL CK-MB (CK-2) Rel Index (1.5-5.0) % Troponin I (0.01-0.034) ng/mL Total Protein 8.2 (6.3-8.2) g/dL Albumin 4.4 (3.5-5.0) g/dL Globulin 3.8 (1.7-4.1) g/dL Albumin/Globulin Ratio 1.2 (1.0-2.8) Lipase 58 (23-300) U/L Urine Color Urine Appearance Urine pH (4.5-8.0) Ur Specific [place] (1.000-1.035) Urine Protein (Negative) Urine Glucose (UA) (Negative) g/dL Urine Ketones (NEGATIVE) Urine Occult Blood (Negative) Urine Nitrate (Negative) Urine Bilirubin (NEGATIVE) Urine Urobilinogen (0.2) E.U./dL Ur Leukocyte Esterase (NEGATIVE) Urine RBC (0-5/HPF) Urine WBC (0-5/HPF) Urine Bacteria (None) Ur Culture Indicated? Micro UA Comment U Opiates 300ng/mL cut (Negative) Ur Oxycodone Screen (Negative) Urine Methadone Screen (Negative) Ur Barbiturates Screen (Negative) U Tricyclic Antidepress (Negative) Ur Phencyclidine Scrn (Negative) Ur Amphetamines Screen (Negative) U Methamphetamines Scrn (Negative) Ur MDMA Scrn (Ecstasy) (Negative) U Benzodiazepines Scrn (Negative) Urine Cocaine Screen (Negative) U Marijuana (THC) Screen (Negative) Ethyl Alcohol ( - 10) mg/dL SARS-CoV-2 (PCR) (Negative) 08/19/22 08/19/22 08/19/22 Range/Units 19:58 20:08 20:08 WBC (4.5-11.0) X10^3/uL RBC (4.5-5.9) X10^6/uL Hgb (13.5-17.5) g/dL Hct (41-53) % MCV (80-100) fL MCH (26-34) PG MCHC (30-36) % RDW (11.6-14.8) % Plt Count (150-400) X10^3/uL Neut % (Auto) (50-75) % Lymph % (Auto) (25-40) % [place] % (Auto) (3-14) % Eos % (Auto) (2-4) % Baso % (Auto) (0-2) % Neut # (Auto) (8660-6075) /uL Lymph # (Auto) (8601-7038) /uL [place] # (Auto) (0-900) /uL Eos # (Auto) (0-450) /uL Baso # (Auto) (0-100) /uL PT (10.1-12.7) SECONDS INR (0.9-1.3) APTT (26-36) SECONDS Sodium (137-145) mmol/L Potassium (3.4-5.1) mmol/L Chloride (98-107) mmol/L Carbon Dioxide (22-32) mmol/L BUN (9-20) mg/dL Creatinine (0.66-1.25) mg/dL Estimated GFR (>60) mL/min BUN/Creatinine Ratio (6-22) Glucose (70-100) mg/dL Calcium (8.4-10.2) mg/dL Total Bilirubin (0.2-1.3) mg/dL AST (17-59) IU/L ALT (<50) IU/L Alkaline Phosphatase (38-126) U/L Total Creatine Kinase 137 (55-170) U/L CK-MB (CK-2) 0.55 (<2.37) ng/mL CK-MB (CK-2) Rel Index 0.4 L (1.5-5.0) % Troponin I < 0.012 (0.01-0.034) ng/mL Total Protein (6.3-8.2) g/dL Albumin (3.5-5.0) g/dL Globulin (1.7-4.1) g/dL Albumin/Globulin Ratio (1.0-2.8) Lipase (23-300) U/L Urine Color Yellow Urine Appearance Clear Urine pH 7.0 (4.5-8.0) Ur Specific [place] 1.010 (1.000-1.035) Urine Protein Negative (Negative) Urine Glucose (UA) Negative (Negative) g/dL Urine Ketones Negative (NEGATIVE) Urine Occult Blood Negative (Negative) Urine Nitrate Negative (Negative) Urine Bilirubin Negative (NEGATIVE) Urine Urobilinogen 0.2 (0.2) E.U./dL Ur Leukocyte Esterase Negative (NEGATIVE) Urine RBC None seen (0-5/HPF) Urine WBC None seen (0-5/HPF) Urine Bacteria None seen (None) Ur Culture Indicated? Cult not indicated Micro UA Comment Microscopic normal U Opiates 300ng/mL cut Negative (Negative) Ur Oxycodone Screen Negative (Negative) Urine Methadone Screen Negative (Negative) Ur Barbiturates Screen Negative (Negative) U Tricyclic Antidepress Negative (Negative) Ur Phencyclidine Scrn Negative (Negative) Ur Amphetamines Screen Negative (Negative) U Methamphetamines Scrn Negative (Negative) Ur MDMA Scrn (Ecstasy) Negative (Negative) U Benzodiazepines Scrn Negative (Negative) Urine Cocaine Screen Negative (Negative) U Marijuana (THC) Screen Negative (Negative) Ethyl Alcohol < 10 ( - 10) mg/dL SARS-CoV-2 (PCR) (Negative) 08/19/22 Range/Units 21:21 WBC (4.5-11.0) X10^3/uL RBC (4.5-5.9) X10^6/uL Hgb (13.5-17.5) g/dL Hct (41-53) % MCV (80-100) fL MCH (26-34) PG MCHC (30-36) % RDW (11.6-14.8) % Plt Count (150-400) X10^3/uL Neut % (Auto) (50-75) % Lymph % (Auto) (25-40) % [place] % (Auto) (3-14) % Eos % (Auto) (2-4) % Baso % (Auto) (0-2) % Neut # (Auto) (8383-7060) /uL Lymph # (Auto) (6960-9986) /uL [place] # (Auto) (0-900) /uL Eos # (Auto) (0-450) /uL Baso # (Auto) (0-100) /uL PT (10.1-12.7) SECONDS INR (0.9-1.3) APTT (26-36) SECONDS Sodium (137-145) mmol/L Potassium (3.4-5.1) mmol/L Chloride (98-107) mmol/L Carbon Dioxide (22-32) mmol/L BUN (9-20) mg/dL Creatinine (0.66-1.25) mg/dL Estimated GFR (>60) mL/min BUN/Creatinine Ratio (6-22) Glucose (70-100) mg/dL Calcium (8.4-10.2) mg/dL Total Bilirubin (0.2-1.3) mg/dL AST (17-59) IU/L ALT (<50) IU/L Alkaline Phosphatase (38-126) U/L Total Creatine Kinase (55-170) U/L CK-MB (CK-2) (<2.37) ng/mL CK-MB (CK-2) Rel Index (1.5-5.0) % Troponin I (0.01-0.034) ng/mL Total Protein (6.3-8.2) g/dL Albumin (3.5-5.0) g/dL Globulin (1.7-4.1) g/dL Albumin/Globulin Ratio (1.0-2.8) Lipase (23-300) U/L Urine Color Urine Appearance Urine pH (4.5-8.0) Ur Specific [place] (1.000-1.035) Urine Protein (Negative) Urine Glucose (UA) (Negative) g/dL Urine Ketones (NEGATIVE) Urine Occult Blood (Negative) Urine Nitrate (Negative) Urine Bilirubin (NEGATIVE) Urine Urobilinogen (0.2) E.U./dL Ur Leukocyte Esterase (NEGATIVE) Urine RBC (0-5/HPF) Urine WBC (0-5/HPF) Urine Bacteria (None) Ur Culture Indicated? Micro UA Comment U Opiates 300ng/mL cut (Negative) Ur Oxycodone Screen (Negative) Urine Methadone Screen (Negative) Ur Barbiturates Screen (Negative) U Tricyclic Antidepress (Negative) Ur Phencyclidine Scrn (Negative) Ur Amphetamines Screen (Negative) U Methamphetamines Scrn (Negative) Ur MDMA Scrn (Ecstasy) (Negative) U Benzodiazepines Scrn (Negative) Urine Cocaine Screen (Negative) U Marijuana (THC) Screen (Negative) Ethyl Alcohol ( - 10) mg/dL SARS-CoV-2 (PCR) Negative (Negative) Point of Care Testing Glucose POC 82 Urine Dip Bedside Urine Glucose Negative Bedside Urine Bilirubin - Negative Bedside Urine Ketone - Negative Urine Specific [place] 1.010 Bedside Urine Occult Blood - Negative Bedside Urine pH 7.0 Bedside Urine Protein - Negative Bedside Urine Urobilinogen - Negative Bedside Urine Nitrite - Negative Bedside Urine Leukocytes - Negative Esterase Imaging Data CT Head: Radiologist's Impression: FINDINGS:? Image quality:? Excellent.? ? CSF spaces:? Basal cisterns are patent.? No extra-axial fluid collections.? Ventricles are normal in size and shape.? ? Brain:? No intracranial hemorrhage, mass, or mass effect.? Lamb-white matter interface appears preserved.? ? Skull and face:? Calvarium and visualized facial bones are intact, without suspicious lesions.? ? Sinuses:? Visualized sinuses demonstrate a sinus retention cyst or mucosal polyp within the left maxillary sinus.? Mastoid air cells are clear. ? IMPRESSION:? ? 1. No acute intracranial abnormality.? ? ? Dictated by: Aquiles Beltran M.D. on 08/19/2022 at 21:26 ? ? CTA head and neck: Radiologist's Impression: FINDINGS:? Image quality:? Excellent.? ? BRAIN:? CSF spaces:? Basal cisterns are patent.? No extra-axial fluid collections.? Ventricles are normal in size and shape.? ? Brain:? No intracranial hematoma collections, mass, or mass effect.? Lamb-white matter interface appears preserved.? No abnormal intracranial enhancement.? ? Skull and face:? Calvarium and facial bones appear intact, without suspicious lesions.? Orbits appear normal.? ? Sinuses:? Sinuses and mastoids are clear.? ? HEAD CT ANGIOGRAPHY:? Anterior circulation:? Intracranial internal carotid arteries are normal in size and appear patent bilaterally.? There is mild atherosclerotic calcification along the cavernous segments of the internal carotid arteries.? The paired anterior cerebral arteries appear patent bilaterally.? The anterior communicating artery also appears patent. The middle cerebral arteries appear patent bilaterally.? No high-grade stenosis, occlusion, or filling defects.? No cerebral aneurysms identified. ? Posterior circulation:? Visualized portions of the vertebral arteries demonstrate normal caliber, and join to form a patent basilar artery.? The posterior cerebral arteries appears patent bilaterally.? No high-grade stenosis, occlusion, or filling defects.? No cerebral aneurysms identified. ? NECK CT ANGIOGRAPHY:? Carotid system:? The great vessels demonstrate a conventional anatomy as they arise from the aortic arch.? The origins of the common carotid arteries appear patent.? The common carotid arteries demonstrate normal caliber and courses.? The bifurcation regions are both widely patent.? The internal carotid arteries demonstrate normal calibers and courses.? ? Posterior circulation:? The origins of the vertebral arteries both appear patent.? The more superior extracranial portions of both vertebral arteries also demonstrate normal courses and calibers.? They join to form a patent basilar artery.? ? Soft tissues:? Visualized neck soft tissues demonstrate no suspicious abnormalities.? ? Bones:? No suspicious bony lesions.? Visualized cervical spine demonstrates straightening of the cervical lordosis.? ? IMPRESSION:? ? 1. No high-grade stenosis or occlusion of the central intracranial arteries. ? 2. No high-grade stenosis or occlusion of the head and neck arteries.? The carotid bulbs are widely patent.? ? Any quantitative measurements of stenosis were performed using NASCET criteria.? ? ? Dictated by: Aquiles Beltran M.D. on 08/19/2022 at 21:27 ? ? ECG Data Interpretation: Sinus rhythm at a rate of 75 Normal intervals, normal axis No acute ischemic changes MDM Narrative Medical decision making narrative: CC: 1-1/2 hours of left-sided paresthesia mild contusion. This is a new pr oblem acute onset uncertain diagnosis with potential for significant morbidity and mortality Complicating co-morbidities: Anxiety, obesity Corroborating data: Data collected from: patient, Differential considered: Stroke, TIA, complex migraine, brain tumor, infectious etiology/meningitis Exam documented above, pertinent findings include: No nuchal rigidity, subtle changes in fine motor skills/ataxia and weakness on the left side that does not meet criteria for full NIH score. NIH score is 0 Lab Test results independently reviewed as above. Pertinent findings: CBC is unremarkable Chemistries are reassuring Independently reviewed EKG as above Imaging studies independently reviewed: CT scan of the head does not show any any acute bleeding or gross abnormalities. CT angiogram of the head and neck shows no large vessel occlusions or acute stenosis 1030pm patient is updated on all findings and plan. Discussion: 32-year-old gentleman with approximately an hour and a half of facial weakness, paresthesia left side with mild right-sided headache in the setting of no headache history. Symptoms have essentially resolved upon arrival in the emergency department with very subtle findings on provocative physical exam. At the age of 32 I am quite concerned for TIA versus stroke. Imaging initially is negative I believe he deserves an MRI as well as a cardiac echo to make sure that he does not have septal defect that might have caused a mild stroke or TIA. All this is reviewed with patient and his . I have recommended hospitalization for continued workup and observation overnight he is agreeable to this. 10:35 Care is discussed with the hospitalist service and patient will be admitted observation status for continued workup Discharge Plan Departure Patient Disposition: Admitted as Observation Clinical Impression: Brain TIA Prescriptions: No Action fexofenadine 180 MG tablet 180 mg PO QDAY Qty: 0 omeprazole 20 mg tablet,delayed release (DR/EC) 40 mg PO DAILY Qty: 60 0RF hydroxyzine HCl 25 mg tablet 25 mg PO TID PRN (Reason: anxiety/nausea) Qty: 20 0RF ondansetron 4 mg tablet,disintegrating 4 mg PO Q6-8H PRN (Reason: nausea and vomiting) Qty: 10 0RF sucralfate [Carafate] 1 gram tablet 1 g PO BID PRN (Reason: heartburn) Qty: 30 0RF hydrocodone-acetaminophen 5-325 mg tablet 1 tab PO TID PRN (Reason: pain) Qty: 10 0RF Referrals: Raiza Balderas ARNP [Primary Care Provider] -
--- NOTE | 2022-08-19 20:52 | DI.CT.S_ITS ---
PROCEDURE: CT HEAD/BRAIN WO CON INDICATIONS: Left side deficits 3:45 today, resolved now TECHNIQUE: Noncontrast 4.5 mm thick angled axial sections acquired from the foramen magnum to the vertex, with coronal and sagittal reformats. For radiation dose reduction, the following was used: automated exposure control, adjustment of mA and/or kV according to patient size. COMPARISON: None. FINDINGS: Image quality: Excellent. CSF spaces: Basal cisterns are patent. No extra-axial fluid collections. Ventricles are normal in size and shape. Brain: No intracranial hemorrhage, mass, or mass effect. Lamb-white matter interface appears preserved. Skull and face: Calvarium and visualized facial bones are intact, without suspicious lesions. Sinuses: Visualized sinuses demonstrate a sinus retention cyst or mucosal polyp within the left maxillary sinus. Mastoid air cells are clear. IMPRESSION: 1. No acute intracranial abnormality. Dictated by: Aquiles Beltran M.D. on 08/19/2022 at 21:26 Approved by: Aquiles Beltran M.D. on 08/19/2022 at 21:27
--- NOTE | 2022-08-19 20:54 | DI.CT.S_ITS ---
PROCEDURE: CT ANGIO HEAD AND NECK INDICATIONS: suspected stroke TECHNIQUE: After the administration of intravenous contrast, 1 mm thick sections acquired from the aortic arch through the [place] of [place]. Post-contrast 4.5 mm thick sections then re-acquired from the foramen magnum to the vertex. 3-dimensional ctgipky-kgzwvhhps-fnqcpfibzz (MIP) and/or volume rendering reformats were acquired of the central intracranial vasculature and neck separately. For radiation dose reduction, the following was used: automated exposure control, adjustment of mA and/or kV according to patient size. COMPARISON: None. FINDINGS: Image quality: Excellent. BRAIN: CSF spaces: Basal cisterns are patent. No extra-axial fluid collections. Ventricles are normal in size and shape. Brain: No intracranial hematoma collections, mass, or mass effect. Lamb-white matter interface appears preserved. No abnormal intracranial enhancement. Skull and face: Calvarium and facial bones appear intact, without suspicious lesions. Orbits appear normal. Sinuses: Sinuses and mastoids are clear. HEAD CT ANGIOGRAPHY: Anterior circulation: Intracranial internal carotid arteries are normal in size and appear patent bilaterally. There is mild atherosclerotic calcification along the cavernous segments of the internal carotid arteries. The paired anterior cerebral arteries appear patent bilaterally. The anterior communicating artery also appears patent. The middle cerebral arteries appear patent bilaterally. No high-grade stenosis, occlusion, or filling defects. No cerebral aneurysms identified. Posterior circulation: Visualized portions of the vertebral arteries demonstrate normal caliber, and join to form a patent basilar artery. The posterior cerebral arteries appears patent bilaterally. No high-grade stenosis, occlusion, or filling defects. No cerebral aneurysms identified. NECK CT ANGIOGRAPHY: Carotid system: The great vessels demonstrate a conventional anatomy as they arise from the aortic arch. The origins of the common carotid arteries appear patent. The common carotid arteries demonstrate normal caliber and courses. The bifurcation regions are both widely patent. The internal carotid arteries demonstrate normal calibers and courses. Posterior circulation: The origins of the vertebral arteries both appear patent. The more superior extracranial portions of both vertebral arteries also demonstrate normal courses and calibers. They join to form a patent basilar artery. Soft tissues: Visualized neck soft tissues demonstrate no suspicious abnormalities. Bones: No suspicious bony lesions. Visualized cervical spine demonstrates straightening of the cervical lordosis. IMPRESSION: 1. No high-grade stenosis or occlusion of the central intracranial arteries. 2. No high-grade stenosis or occlusion of the head and neck arteries. The carotid bulbs are widely patent. Any quantitative measurements of stenosis were performed using NASCET criteria. Dictated by: Aquiles Beltran M.D. on 08/19/2022 at 21:27 Approved by: Aquiles Beltran M.D. on 08/19/2022 at 21:30
[2022-08-19 21:13] LABS: Appearance Urine UA CLEAR; Bilirubin Urine UA NEGATIVE (NEGATIVE); Color Urine UA YELLOW; Glucose Urine UA NEGATIVE (Negative); Ketones Urine UA NEGATIVE (NEGATIVE); Leukocyte Esterase Urine UA NEGATIVE (NEGATIVE); Nitrite Urine UA NEGATIVE (Negative); Occult Blood Urine UA NEGATIVE (Negative); Protein Urine UA NEGATIVE (Negative); Urobilinogen Urine UA 0.2 E.U./dL (0.2)
[2022-08-19 21:29] LABS: UR Morphine/Opiate cutoff 300 Negative (Negative); Ur Creatinine Normal (Normal); Ur Specific Gravity Normal (Normal); Urine Amphetamines Negative (Negative); Urine Barbiturates Negative (Negative); Urine Benzodiazepines Negative (Negative); Urine Cocaine Negative (Negative); Urine MDMA Negative (Negative); Urine Methadone Negative (Negative); Urine Methamphetamines Negative (Negative); Urine Oxycodone Negative (Negative); Urine Phencyclidine Negative (Negative); Urine Tetrahydrocannabinol Negative (Negative); Urine Tricyclic Antidepressant Negative (Negative); Urine pH Normal (Normal)
[2022-08-19 21:36] LABS: Bacteria Urine None Seen; Culture Indicated Urine Cult Not Indicated; RBC Urine None Seen (0-5/HPF); Urine Comments Microscopic Normal; WBC Urine None Seen (0-5/HPF)
[2022-08-19 21:45] LABS: COVID19 -Nasal RAPID Negative (Negative)
[2022-08-19 21:59] LABS: INR 1.1 (0.9-1.3); Prothrombin Time 12.9 SECONDS (10.1-12.7)
[2022-08-19 22:02] LABS: PTT Partial Thromboplastin Tim 32 SECONDS (26-36)
[2022-08-19 22:04] LABS: Creatine Kinase 137 U/L (55-170); Ethanol (ETOH) < 10 mg/dL
[2022-08-19 22:16] LABS: Troponin I < 0.012 ng/mL (0.01-0.034)
[2022-08-19 22:19] LABS: CKMB % Relative Index 0.4 % (1.5-5.0); Creatine Kinase MB 0.55 ng/mL (<2.37)
--- NOTE | 2022-08-19 23:22 | PC.NURSE ---
Received patient from ED in no distress. Patient awake alert with no complaints.
--- NOTE | 2022-08-19 23:42 | P.HP_ITS ---
History of Present Illness History of Present Illness Date Patient Seen: 08/19/22 Time Patient Seen: 23:42 Chief complaint: Suspected TIA vs cervical mylomacia Narrative: Ankit Duff is a 32 y.o. adopted male with GERD, BEY, and asthma who with his fiance was visiting in [place] when he was seated and developed nausea and vomiting after having taken a dose of hydraxazine. He developed numbing and tingling of the left side of his face, girlfriend noted he seemed to have a facial droop on the left side, stated he was also numb and weak on his upper and lower extremities. Denies blurred vision, h/a, difficulty swallowing, shortness of breath, chest pain, or loss of bowel or bladder control. He states he has been under a great deal of stress since June when he contracted COVID on the , his fiance's baby was born on June 30 describing it as traumatic, she coded purple and had to undergo an emergent . States a friend of his suddenly in his sleep in July. He has recently been diagnosed with anxiety and depression. Patient denies any neck or back injuries but states a remote history of concussions and injuries related to snowboarding and skating. FH: patient is adopted, father was an undocumented immigrant and states his mother was a prostitute and believe she has . In the ED, his symptoms resolved, though his fiance stated he seemed to be confused. CT of the head and CTA of the head and neck ordered in the ED were both negative for any acute intracranial process. He is afebrile, blood pressure 137/80 heart rate 78 respiratory rate 18 oxygen saturation 95% on room air he weighs 117.9 kg with a BMI of 35. CBC is unremarkable, BMP is unremarkable he does have elevated liver enzymes AST 75 ALT 159 UA and urine toxicology both negative viral panel and COVID-19 PCR are also negative. Patient History Medical History (Updated 08/20/22 @ 00:10 by MARGARITA Krishna) GERD (gastroesophageal reflux disease) BEY (nonalcoholic steatohepatitis) Family & Social History Family History (Updated 08/20/22 @ 00:11 by MARGARITA Krishna) Other Adopted Social History: household members significant other Prior Living Arrangements House Safety & Behavioral: Feels Safe in Current Yes Environment Been Physically Hurt or No Threatened By a Person Tobacco & Substance use: Smoking Status Never smoker alcohol intake frequency 0-2 drinks per day Substance Use Type does not use Meds Home Medications and Allergies Home Medications Medication Instructions Recorded Confirmed Type fexofenadine 180 mg tablet 180 mg PO QDAY ##0 02/09/11 History hydrocodone 5 mg-acetaminophen 325 1 tab PO TID PRN pain #10 tabs 08/01/22 Rx mg tablet hydroxyzine HCl 25 mg tablet 25 mg PO TID PRN anxiety/nausea 08/01/22 Rx #20 tabs omeprazole 20 mg tablet,delayed 40 mg PO DAILY #60 tabs 08/01/22 Rx release ondansetron 4 mg disintegrating 4 mg PO Q6-8H PRN nausea and 08/01/22 Rx tablet vomiting #10 tabs sucralfate 1 gram tablet (Carafate) 1 g PO BID PRN heartburn #30 tabs 08/01/22 Rx Allergies Allergy/AdvReac Type Severity Reaction Status Date / Time No Known Drug Allergies Allergy Verified 08/19/22 19:43 Review of Systems Review of Systems ROS: Yes All systems reviewed with the patient and are negative except as otherwise documented Exam Vital Signs (past 8 hours): - 08/19/22 18:25 08/19/22 19:33 08/19/22 19:33 Temperature 98.5 F Pulse Rate 103 H 78 Respiratory Rate 20 Blood Pressure 153/104 H 140/88 Pulse Oximetry 97 97 Oxygen Delivery Method Room Air Room Air 08/19/22 20:02 08/19/22 20:03 08/19/22 20:03 Temperature Pulse Rate 74 74 Respiratory Rate Blood Pressure 140/96 H Pulse Oximetry 99 97 Oxygen Delivery Method Room Air Room Air 08/19/22 20:30 08/19/22 20:30 08/19/22 21:00 Temperature Pulse Rate 67 Respiratory Rate Blood Pressure 134/84 152/94 H Pulse Oximetry 96 Oxygen Delivery Method Room Air 08/19/22 21:00 08/19/22 21:30 08/19/22 21:30 Temperature Pulse Rate 81 71 Respiratory Rate Blood Pressure 139/85 Pulse Oximetry 98 95 Oxygen Delivery Method Room Air Room Air 08/19/22 22:00 08/19/22 22:00 08/19/22 22:30 Temperature Pulse Rate 68 Respiratory Rate Blood Pressure 134/84 124/79 Pulse Oximetry 94 Oxygen Delivery Method Room Air 08/19/22 22:30 08/19/22 23:00 Temperature 97.0 F L Pulse Rate 69 78 Respiratory Rate 18 Blood Pressure 137/80 Pulse Oximetry 94 95 Oxygen Delivery Method Room Air Oxygen Delivery Method Room Air Narrative Exam Narrative: Gen: Alert, oriented, obese 32 y.o. male, NAD HEENT: normocephalic, atraumatic, conjunctiva clear, sclera non-icteric, oral mucosa pink and moist Neck: supple, full ROM, no JVD, trachea is midline Resp: Lungs CTA, non-labored breathing CV: RRR, no murmur or rubs Abd: soft, non-tender, normoactive BTs Skin: no lesions or rashes, dry and intact Neuro: NIH score was 0 Alert and oriented X 4 w/no focal deficits. Speech clear and coherent. Extremities: No facial droop, bilateral strength in fact a left moss gatherer is 5 of 5 right is 4 of 5 moves all 4 extremities, is ambulatory, negative Yair?s sign Psyche: normal mood and affect. Objective Labs 08/19/22 19:58 08/19/22 19:58 Labs: Laboratory Results - last 24 hr 08/19/22 08/19/22 08/19/22 19:58 19:58 19:58 WBC 7.2 RBC 5.47 Hgb 16.2 Hct 45.7 MCV 83.4 MCH 29.5 MCHC 35.4 RDW 13.9 Plt Count 207 Neut % (Auto) 68.3 Lymph % (Auto) 23.4 L [place] % (Auto) 5.3 Eos % (Auto) 2.4 Baso % (Auto) 0.6 Neut # (Auto) 4900 Lymph # (Auto) 1700 [place] # (Auto) 400 Eos # (Auto) 200 Baso # (Auto) 0 PT 12.9 H INR 1.1 APTT 32 Sodium 139 Potassium 3.9 Chloride 100 Carbon Dioxide 27 BUN 10 Creatinine 0.67 Estimated GFR > 60 BUN/Creatinine Ratio 14.9 Glucose 91 Calcium 9.3 Total Bilirubin 0.9 AST 75 H ALT 159 H Alkaline Phosphatase 67 Total Creatine Kinase CK-MB (CK-2) CK-MB (CK-2) Rel Index Troponin I Total Protein 8.2 Albumin 4.4 Globulin 3.8 Albumin/Globulin Ratio 1.2 Lipase 58 Urine Color Urine Appearance Urine pH Ur Specific [place] Urine Protein Urine Glucose (UA) Urine Ketones Urine Occult Blood Urine Nitrate Urine Bilirubin Urine Urobilinogen Ur Leukocyte Esterase Urine RBC Urine WBC Urine Bacteria Ur Culture Indicated? Micro UA Comment U Opiates 300ng/mL cut Ur Oxycodone Screen Urine Methadone Screen Ur Barbiturates Screen U Tricyclic Antidepress Ur Phencyclidine Scrn Ur Amphetamines Screen U Methamphetamines Scrn Ur MDMA Scrn (Ecstasy) U Benzodiazepines Scrn Urine Cocaine Screen U Marijuana (THC) Screen Ethyl Alcohol SARS-CoV-2 (PCR) 08/19/22 08/19/22 08/19/22 19:58 20:08 20:08 WBC RBC Hgb Hct MCV MCH MCHC RDW Plt Count Neut % (Auto) Lymph % (Auto) [place] % (Auto) Eos % (Auto) Baso % (Auto) Neut # (Auto) Lymph # (Auto) [place] # (Auto) Eos # (Auto) Baso # (Auto) PT INR APTT Sodium Potassium Chloride Carbon Dioxide BUN Creatinine Estimated GFR BUN/Creatinine Ratio Glucose Calcium Total Bilirubin AST ALT Alkaline Phosphatase Total Creatine Kinase 137 CK-MB (CK-2) 0.55 CK-MB (CK-2) Rel Index 0.4 L Troponin I < 0.012 Total Protein Albumin Globulin Albumin/Globulin Ratio Lipase Urine Color Yellow Urine Appearance Clear Urine pH 7.0 Ur Specific [place] 1.010 Urine Protein Negative Urine Glucose (UA) Negative Urine Ketones Negative Urine Occult Blood Negative Urine Nitrate Negative Urine Bilirubin Negative Urine Urobilinogen 0.2 Ur Leukocyte Esterase Negative Urine RBC None seen Urine WBC None seen Urine Bacteria None seen Ur Culture Indicated? Cult not indicated Micro UA Comment Microscopic normal U Opiates 300ng/mL cut Negative Ur Oxycodone Screen Negative Urine Methadone Screen Negative Ur Barbiturates Screen Negative U Tricyclic Antidepress Negative Ur Phencyclidine Scrn Negative Ur Amphetamines Screen Negative U Methamphetamines Scrn Negative Ur MDMA Scrn (Ecstasy) Negative U Benzodiazepines Scrn Negative Urine Cocaine Screen Negative U Marijuana (THC) Screen Negative Ethyl Alcohol < 10 SARS-CoV-2 (PCR) 08/19/22 21:21 WBC RBC Hgb Hct MCV MCH MCHC RDW Plt Count Neut % (Auto) Lymph % (Auto) [place] % (Auto) Eos % (Auto) Baso % (Auto) Neut # (Auto) Lymph # (Auto) [place] # (Auto) Eos # (Auto) Baso # (Auto) PT INR APTT Sodium Potassium Chloride Carbon Dioxide BUN Creatinine Estimated GFR BUN/Creatinine Ratio Glucose Calcium Total Bilirubin AST ALT Alkaline Phosphatase Total Creatine Kinase CK-MB (CK-2) CK-MB (CK-2) Rel Index Troponin I Total Protein Albumin Globulin Albumin/Globulin Ratio Lipase Urine Color Urine Appearance Urine pH Ur Specific [place] Urine Protein Urine Glucose (UA) Urine Ketones Urine Occult Blood Urine Nitrate Urine Bilirubin Urine Urobilinogen Ur Leukocyte Esterase Urine RBC Urine WBC Urine Bacteria Ur Culture Indicated? Micro UA Comment U Opiates 300ng/mL cut Ur Oxycodone Screen Urine Methadone Screen Ur Barbiturates Screen U Tricyclic Antidepress Ur Phencyclidine Scrn Ur Amphetamines Screen U Methamphetamines Scrn Ur MDMA Scrn (Ecstasy) U Benzodiazepines Scrn Urine Cocaine Screen U Marijuana (THC) Screen Ethyl Alcohol SARS-CoV-2 (PCR) Negative Assessment & Plan Assessment & Plan narrative: Ankit Duff will be observed overnight to enable further workup of a potential TIA TIA/Stroke, acute and present on admission - Cardiac telemetry - NIH score greater than 5 []yes [X]no, NIH scoring and neuro checks q 4 hours - Dual antiplatelet therapy: No[X] Low dose aspirin only. - MR stroke scheduled for 08/20 - Complete Echo with bubble study for 08/20 - PT/OT/ST evaluation Left sided parastesia, new * C-spine MRI in the am to r/o cervical myomalacia Hypertension, acute with an admission bp of [], present on admission - Allow for permissive hypertension of 220/110 HR 60 to allow for brain perfusion - Allow for permissive hypertension for brain profusion of a systolic of 220 and a diastolic of 105. - IV labetolol if his systolic exceeds 220 or diastolic greater than 105. HLD Fasting lipid panel, pending for 0500 labs - Atorvastatin 40 mg po at bedtime Risk stratification - Fasting lipid panel pending for the morning - A1c is 5.6 % Diabetes type 2 X not diabetic Other independent historians: None Discussion of results, plan of care with independent HCP/other ED provider Reviewed outside records: none available VTE Prophylaxis: Wells risk score 0 [X]Enoxaparin 40 mg subQ once daily X Bilateral SCDs Patient is placed into observation as his stay is not expected to exceed 2 midnights. FEN: IV fluids: saline lock, diet: heart healthy, labs: CBC, C/BMP, liver enzymes, Mag, PT/INR Consultants None Social determinants of health: Long-Covid syndrome, anxiety, unknown family history Dispo: probable d/c to home Code status: Full cide as discussed with the patient who identifies Shelly navarro as his surrogate and POA. Advanced care planning 0 minutes. [X] I have utilized all available immediate resources to obtain, update, or review of the patient's current medications VTE Deep Vein Thrombosis/Pulmonary Embolism Present on Admission: No MIPS - Admit I confirm the patient?s Advance Care Plan is present, Code status is documented, Surrogate decision maker is in patient?s record: Yes MIPS - DC The patient has current or prior documentation of left ventricular ejection fraction (LVEF) less than 40%, or moderate or severely depressed left ventricular systolic function.: No COVID-19 COVID-19 status: Negative Result date/Date tested (Pos, Neg/Pending): 08/20/22
[2022-08-19 23:49] LABS: Hemoglobin A1C% w Est Avg Glu 5.6 % (4.0-6.0)
--- NOTE | 2022-08-20 | DI.ECHO.S_ITS ---
[facility]---------+ [facility] +---------+ : : [address] : : : : [id number] : : : : Phone: [phone]+ Echocardiogram Report + + :Name: RICARDA WILLARD Study Date: 08/20/2022 Height: 72 in : :[facility] ReadingLocation: Weight: 260 lb : : Gender: Male BSA: 2.4 m2 : :: 1990 Age: 32 yrs BP: 132/90 mmHg: :Reason For Study: TIA : :Ordering Physician: Lelia SAUCEDAformed By: Lizeth Morales : :Referring: NIALL SAUCEDA : + + Interpretation Summary Technically difficult study. Normal left ventricle size with ejection fraction 60-65%. No valvular abnormality. Injection of contrast documented no interatrial shunt. Procedure: A two-dimensional transthoracic echocardiogram with color flow and Doppler was performed. The study quality was technically difficult. There is no prior echocardiogram noted for this patient. A saline contrast injection was performed to assess for cardiac shunting. A contrast injection of Definity was performed to improve assessment of LV function. The patient was in sinus rhythm with heart rates between 69-91 bpm during the exam. Left Ventricle: The left ventricle is normal in size and wall thickness. The ejection fraction is estimated to be 60-65%. There are no focal wall motion abnormalities. Right Ventricle: The right ventricle is not well visualized. The right ventricular systolic function is normal. Atria: The left atrial size is normal. Right atrial size is normal. There is no Doppler evidence for an interatrial shunt. Injection of contrast documented no interatrial shunt. Mitral Valve: The mitral valve is normal in structure and function. There is trace mitral regurgitation. Aortic Valve: The aortic valve opens well. There is no aortic valve stenosis. No aortic regurgitation is present. Tricuspid Valve: The tricuspid valve is normal in structure and function. No tricuspid regurgitation. Pulmonary artery pressures cannot be estimated because of the lack of a measurable TR jet velocity. Pulmonic Valve: The pulmonic valve leaflets are thin and pliable; valve motion is normal. There is no pulmonic valvular regurgitation. Great Vessels: The aortic root is normal size. The dimensions of the ascending aorta are normal. The inferior vena cava was not well visualized. Pericardium/ Pleura There is no pericardial effusion. There is no pleural effusion. MMode/2D Measurements & Calculations LVIDd: 3.8 cm LVOT diam: 2.4 cm LVIDs: 2.6 cm Ao root diam: 3.4 cm FS: 31.8 % Ao Arch Diam (Prox Trans): 2.8 cm IVSd: 0.65 cm LVPWd: 0.70 cm LV mason. diameter/BSA (cm/m^2): 1.6 LV sys. diameter/BSA (cm/m^2): 1.1 LA A2 area: 14.0 cm2 RA long axis: 5.2 cm LA A4 area: 18.7 cm2 RA area: 15.3 cm2 LA length (vol): 5.2 cm RA vol: 38.0 ml LA vol: 42.6 ml RA : 16.0 ml/m2 LA vol index: 17.9 ml/m2 TAPSE: 1.9 cm Doppler Measurements & Calculations Ao V2 max: 88.8 cm/sec LVOT Max Shad: 81.8 cm/sec Ao V2 mean: 64.6 cm/sec LV V1 max P.7 mmHg Ao max P.2 mmHg LV V1 VTI: 15.2 cm Ao mean P.8 mmHg ALYCIA(I,D): 4.0 cm2 Ao V2 VTI: 17.2 cm ALYCIA(V,D): 4.2 cm2 sev ratio: 0.88 ALYCIA indexed to BSA (cm^2/m^2): 1.7 MV E max shad: 68.6 cm/sec PA V2 max: 70.9 cm/sec MV A max shad: 65.5 cm/sec PA V2 mean: 47.5 cm/sec MV E/A: 1.0 PA mean P.0 mmHg Med Peak E' Shad: 8.2 cm/sec PA pr(Accel): 27.6 mmHg E/E' med: 8.3 Lat Peak E' Shad: 12.5 cm/sec E/E' lat: 5.5 E/e' average: 6.9 MV dec time: 0.18 sec SV(LVOT): 68.8 ml Electronically signed by: Kelley Worley on Reading Physician:08/20/2022 08:47 AM
--- NOTE | 2022-08-20 | DI.MRI.S_ITS ---
PROCEDURE: MR CERVICAL SPINE WO CON INDICATIONS: left sided paresthesia, old snowboarding and skating injuries TECHNIQUE: Noncontrast sagittal T1 spin echo and T2 fast spin echo, sagittal STIR, foraminal oblique sagittal T2 fast spin echo, and axial gradient echo or T2 fast spin echo through the cervical spine. COMPARISON: [facility], MR, MR HEAD/BRAIN WO CON, 08/20/2022, 14:25. [facility], CT, CT ANGIO HEAD AND NECK, 08/19/2022, 21:06. FINDINGS: Image quality: Excellent. Alignment and Curvature: There is normal bony alignment. Bone Marrow: Marrow demonstrates normal overall signal. Spinal Cord: Visualized spinal cord has normal size and signal. No cerebellar tonsillar herniation. Paraspinous Soft Tissues: No paravertebral masses. Prevertebral soft tissues are normal in thickness. C2-C3: Normal appearance. C3-C4: Level within normal limits. C4-C5: Normal appearance. C5-C6: Normal appearance. C6-C7: Normal appearance. C7-T1: Normal appearance. IMPRESSION: Cervical MRI within normal limits, without a cause of the patient's presenting symptoms identified. Dictated by: Gilberto Palumbo M.D. on 08/20/2022 at 14:15 Approved by: Gilberto Palumbo M.D. on 08/20/2022 at 14:17
[2022-08-20 04:00] VITALS: BP 132/90; PULSE 72; RESP 18; TEMP 36.8; O2SAT 97
[2022-08-20 06:04] LABS: Add Manual Diff / Slide Review NO; Basophils Absolute Auto 0 /uL (0-100); Basophils Percent Auto 0.8 % (0-2); Eosinophils Absolute Auto 200 /uL (0-450); Eosinophils Percent Auto 3.9 % (2-4); Hemoglobin 15.8 g/dL (13.5-17.5); INR 1.2 (0.9-1.3); Lymphocytes Absolute Auto 1800 /uL (1100-4500); Lymphocytes Percent Auto 29.6 % (25-40); Mean Corpuscular Hemoglobin 29.3 PG (26-34); Mean Corpuscular Volume 83.8 fL (80-100); Monocytes Absolute Auto 500 /uL (0-900); Monocytes Percent Auto 7.7 % (3-14); Neutrophils Absolute Auto 3600 /uL (1500-7000); Platelet Count 190 X10^3/uL (150-400); Prothrombin Time 13.6 SECONDS (10.1-12.7); Red Blood Cell Count 5.38 X10^6/uL (4.5-5.9); Red Cell Distribution Width 13.9 % (11.6-14.8); White Blood Cell Count 6.2 X10^3/uL (4.5-11.0)
[2022-08-20 06:14] LABS: Cholesterol 225 mg/dL (140-199); HDL Cholesterol 26 mg/dL (40-60); LDL Cholesterol Calculated 158 mg/dL (<100); Triglycerides 207 mg/dL (35-150)
[2022-08-20 06:16] LABS: Alanine Aminotransferase 153 IU/L (<50); Albumin 4.1 g/dL (3.5-5.0); Albumin Globulin Ratio 1.2 (1.0-2.8); Alkaline Phosphatase 59 U/L (38-126); Aspartate Aminotransferase 68 IU/L (17-59); BUN Creatinine Ratio 14.3 (6-22); Bilirubin Total 1.1 mg/dL (0.2-1.3); Blood Urea Nitrogen 10 mg/dL (9-20); Calcium 9.2 mg/dL (8.4-10.2); Carbon Dioxide 27 mmol/L (22-32); Chloride 101 mmol/L (98-107); Estimated Glomerular Filt Rate > 60 mL/min (>60); Globulin 3.5 g/dL (1.7-4.1); Glucose 87 mg/dL (70-100); HEMOLYSIS < 15 (0-50); Magnesium 1.8 mg/dL (1.6-2.3); Potassium 3.6 mmol/L (3.4-5.1); Sodium 140 mmol/L (137-145); Total Protein 7.6 g/dL (6.3-8.2)
[2022-08-20 06:25] LABS: Troponin I < 0.012 ng/mL (0.01-0.034)
[2022-08-20 07:16] LABS: Thyroid Stimulating Hormone 1.51 uIU/mL (0.47-4.68)
[2022-08-20 08:00] VITALS: BP 136/81; PULSE 82; RESP 17; TEMP 36.8; O2SAT 96
--- NOTE | 2022-08-20 09:37 | OT.IP.EVAL ---
Past Medical History (Last Updated 08/20/22 @ 00:10 by MARGARITA Krishna) GERD (gastroesophageal reflux disease) BEY (nonalcoholic steatohepatitis) Occupational Therapy Inpatient Evaluation/Re-Eval M1 PT/OT-IP Prior Functional Status Start: 08/20/22 10:33 Freq: NEEDED Status: Active Protocol: Document 08/20/22 10:33 CGR (Rec: 08/20/22 10:42 CGR [id number]) Medical Review Prior Functional Status Medical History Reviewed Yes Communication Pt is an effective verbal communicator. Mobility and Gait Pt was IND without AD at baseline Activities of Daily Living and IADL's Pt was IND in all ADLs and IADLs Prior Functional Level (Other details) Pt lives with his girlfriend and they had a baby in June. 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 Social History Household Members significant other Living Arrangements House Number of Floors (Floors) Two Floors Number of Stairs To Enter/Railing? 8 stairs to enter the split level home then another 8 to the second floor where they are staying. 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 OT-IP Current Condition Start: 08/20/22 10:33 Freq: Status: Active Protocol: Document 08/20/22 10:33 CGR (Rec: 08/20/22 10:42 CGR [id number]) Occupational Therapy Current Condition Current Condition Evaluation Date 08/20/22 Treatment Diagnosis TIA with R sided involvement M3 OT- IP Subjective and Pain Start: 08/20/22 10:33 Freq: Status: Active Protocol: Document 08/20/22 10:33 CGR (Rec: 08/20/22 10:42 CGR [id number]) OT- Subjective Occupational Therapy Visit Type Type Initial Evaluation Visit Start Time 09:24 Visit Stop Time 09:37 Total Visit Minutes 13 OT Pain Assessment Pain When Pain Assessed At Rest Pain Present Pain Present Denied Pain M4 OT- IP ADL's Start: 08/20/22 10:33 Freq: Status: Active Protocol: Document 08/20/22 10:33 CGR (Rec: 08/20/22 10:42 CGR [id number]) OT [id number] Comments OT Self-Feeding Comments not meal time OT ADL-Grooming General Evaluation Grooming Ability Independent Areas Needing Assistance Face Washing Comments OT Grooming Comments standing at sink OT ADL-Oral Care General Eval Oral Care Ability Independent Areas of Assistance Brushing Teeth Comments Oral Care Comments standing at sink OT ADL-Dressing General Eval Upper Body Dressing Ability Independent Lower Body Dressing Ability Independent Areas Needing Assistance Socks Comments OT Dressing Comments hospital gown OT ADL-Toileting General Evaluation Toileting Ability Independent Comments OT Toileting Comments simulated seated on toielt OT ADL-Bathing Comments OT Bathing Comments not performed M5 OT- IP IADL's Start: 08/20/22 10:33 Freq: Status: Active Protocol: Document 08/20/22 10:33 CGR (Rec: 08/20/22 10:42 CGR [id number]) OT-Instrumental Activities of Daily Living Deficits IADL Deficits Identified No Deficits Home Safety Awareness Awareness of Need for Assistance at Home Good Awareness Ability to Problem Solve Emergency Able to Problem Solve Situations Medication Management Medication Management No Deficits Identified Money Management Money Management No Deficits Identified Meal Preparation Meal Preparation No Deficits Identified Commercial Account Manager Commercial Account Manager No Deficits Identified Driving Driving Comments 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 OT- IP Functional Cognition Start: 08/20/22 10:33 Freq: Status: Active Protocol: Document 08/20/22 10:33 CGR (Rec: 08/20/22 10:42 CGR [id number]) Cognitive Factors Limiting Selfcare Function Cognitive Ability Level of Alertness Alert Patient Orientation Name,Age,Birthday,Month,Date, Year,Day of Week,Place, Situation Attention Span Ability Capable of Focused Attention, Capable of Sustained Attention Ability to Follow Commands Able to Follow Multi-Step Commands OT- Vision and Hearing OT- Hearing Assessment OT- Hearing Assessment WFL OT- Vision Assessment Visual Acuity Glasses All The Time Visual Attentiveness WFL Occular Pursuits WFL Visual Convergence WFL Visual Pat WFL M7 OT- IP Mobility and Balance Start: 08/20/22 10:33 Freq: Status: Active Protocol: Document 08/20/22 10:33 CGR (Rec: 08/20/22 10:42 CGR [id number]) OT- Bed Mobility Assessment Rolling Level of Assistance Independent Supine to Sit Supine to Sit Assist Independent Sit to Supine Sit to Supine Assist Independent Scooting Scooting to Edge of Bed Independent OT-Transfer Assessment Sit to and From Stand Sit to and from Stand Independent Transfers Transfer Ability Independent Technique Transfer Destination Bed,Toilet Transfer Technique Stand Step Pivot Devices Transfer Assistive Devices None Comments Mobility Comments No deficits noted OT- Gait Assessment Gait Gait Assistance Required: Independent Assistive Devices Assistive Device None Comments Gait Ability Comments no deficits noted OT- Balance Assessment Sitting Balance and Reactions Static Sitting Balance Ability Normal Dynamic Sitting Balance Ability Normal Standing Balance and Reactions Static Standing Balance Ability Normal Dynamic Standing Balance Ability Normal M8 OT- IP Objective Assessments Start: 08/20/22 10:33 Freq: Status: Active Protocol: Document 08/20/22 10:33 CGR (Rec: 08/20/22 10:42 CGR [id number]) OT Gross Range of Motion Upper Extremity Range of Motion Assessment Within Functional Limits OT Strength Upper Extremity Strength Shoulder 4 Elbow 5 Forearm 5 Wrist 5 Hand 4+ OT- Coordination Assessment Upper Extremity Finger to Nose Test Within Functional Limits Finger Tapping Test Within Functional Limits OT-Muscle Tone Assessment Muscle Tone WNL Yes OT Sensation Assessment Comments Summary Comments pt states sensation has returned to normal Edema Edema Absent M9 OT- IP Assessment and Plan Start: 08/20/22 10:33 Freq: Status: Active Protocol: Document 08/20/22 10:33 CGR (Rec: 08/20/22 10:42 CGR [id number]) OT Summary Assessment and Plan Potential Rehabilitation Potential Excellent Analytic Complexity at Evaluation Low Summary Progress Towards Goals Goals Met Assessment Summary Pt presents as a low complexity evaluation s/p admit for TIA. No continued symptoms and pt is IND in all ADLs and functional mobility. No further OT needs. No P.T. eval needed as pt is IND for all mobility at this time. Frequency of Treatment Frequency Of Treatment Discharge Discharge Recommendations OT Discharge Recommendations Home Transportation Needs at Discharge Private Vehicle
[2022-08-20] MEDS: ENOXAPARIN 40 MG/0.4 ML SYRINGE SUBCUT (10:49)
[2022-08-20] MEDS: ASPIRIN EC 81 MG TABLET PO (10:49)
--- NOTE | 2022-08-20 12:15 | PT-IP ANOTE ---
Per OT eval no eval needed. No continued symptoms and pt is IND in allADLs and functional mobility.No further OT needs. No P.T. eval needed as pt is IND for all mobility at this time. DC PT order
--- NOTE | 2022-08-20 12:24 | ST.IPSCREEN ---
Pt was reclined in bed when HUMAN SERVICE SPECIALIST arrived. Pt reported no confusion or difficulty swallowing. Structures were symmetrical at rest and in motion. Tongue, lips, and jaw strength and ROM were WNL. Structure and function of oral mechanism was WNL for the purposes of speech and swallowing. Pt swallowed sip of water while lying down and exhibited no overt signs or symptoms of aspiration. Speech therapy is not indicated at this time.
[2022-08-20] MEDS: LORazepam 2 MG/ML INJ 1 MG IV (14:07)
[2022-08-20 16:20] VITALS: BP 143/87; PULSE 88; RESP 17; TEMP 35.6; O2SAT 95
--- NOTE | 2022-08-20 17:05 | PM.DS.1 ---
History of Present Illness History of Present Illness Date Patient Seen: 08/20/22 Chief complaint: Suspected TIA vs cervical mylomacia Narrative: Per admitting provider, Ankit Duff is a 32 y.o. adopted male with GERD, BEY, and asthma who with his fiance was visiting in [place] when he was seated and developed nausea and vomiting after having taken a dose of hydraxazine. He developed numbing and tingling of the left side of his face, girlfriend noted he seemed to have a facial droop on the left side, stated he was also numb and weak on his upper and lower extremities. Denies blurred vision, h/a, difficulty swallowing, shortness of breath, chest pain, or loss of bowel or bladder control. He states he has been under a great deal of stress since June when he contracted COVID on the , his fiance's baby was born on June 30 describing it as traumatic, she coded purple and had to undergo an emergent . States a friend of his suddenly in his sleep in July. He has recently been diagnosed with anxiety and depression. Patient denies any neck or back injuries but states a remote history of concussions and injuries related to snowboarding and skating. FH: patient is adopted, father was an undocumented immigrant and states his mother was a prostitute and believe she has . In the ED, his symptoms resolved, though his fiance stated he seemed to be confused. CT of the head and CTA of the head and neck ordered in the ED were both negative for any acute intracranial process. He is afebrile, blood pressure 137/80 heart rate 78 respiratory rate 18 oxygen saturation 95% on room air he weighs 117.9 kg with a BMI of 35. CBC is unremarkable, BMP is unremarkable he does have elevated liver enzymes AST 75 ALT 159 UA and urine toxicology both negative viral panel and COVID-19 PCR are also negative. Discharge Providers Provider Date of admission: 08/19/22 22:36 Discharge Date: 08/20/22 Primary care physician: MARGARITA Giles Consults: 08/19/22 22:51 Consult to Occupational Therapy Evaluate & Treat Comment: Physician Instructions: Evaluate and treat Consult to Physical Therapy Evaluate & Treat Comment: Physician Instructions: Evaluate and Treat Consult to Speech Therapy Evaluate & Treat Comment: Physician Instructions: Evaluate and treat Discharge provider: Abdulaziz Willingham DO Summary Hospital Course Discharge Diagnosis: TIA Essential hypertension Hospital Course: This is a 32-year-old male with a past medical history of hypertension not currently on medications who presented with left-sided stroke-like symptoms including slurred speech, facial droop, and as some numbness. His symptoms resolved thin a couple of hours, and during his observation. He had no recurrence of symptoms. MRI was performed and did not show any acute infarcts. Echocardiogram was performed and was unremarkable. His ABCD2 score was 3, given his symptoms at this time the most likely etiology appears to be TIA, though there could be a small chance of a medication reaction. Out of an abundance of precaution he was discharged on aspirin and statin, though this can be revisited with his primary care doctor in a few months. His blood pressure was mildly elevated, though at this time it is not recommended that he start on antihypertensive therapy. I recommended he follow-up with his primary care provider for continued follow-up of elevated blood pressures to see if they improve with dietary changes and exercise initially. Time Spent with Patient Time spent: Greater than 30 minutes Exam Vital Signs (past 8 hours): Oxygen Delivery Method Room Air Oxygen Flow Rate 0 Narrative Exam Narrative: General:? Patient is well developed and well nourished, in no distress at this time. HEENT:? Normocephalic, atraumatic, extraocular muscles intact, oral pharynx is clear and mucous membranes are moist. Neck: supple and symmetric, trachea is midline, no cervical adenopathy. Negative for JVD Chest:? Normal AP diameter and contour without kyphoscoliosis, no tachypnea, equal chest rise bilaterally. Lungs:? CTA b/l no wheezing rhonchi or rales. Cardio:?RRR no m/r/g. Abdomen: S NT ND. No CVA tenderness. Musculoskeletal:? Muscle strength and tone are equal within normal limits, no deformity. Extremities: No edema or joint effusions. No cyanosis or clubbing. Skin:? Pale,? Warm to touch,dry and intact without rashes, ulcerations or petechiae.? Neuro:? Alert and orientated x3,? sensation to touch intact in all extremities, no gross deficits noted of cranial nerves. Psych:? Patient has a well-kept appearance, appropriate affect, mental status attitude thought context and judgment are appropriate for age. Objective Labs 08/20/22 04:59 08/20/22 04:59 Labs: Laboratory Results - last 24 hr 08/19/22 08/19/22 08/19/22 19:58 19:58 19:58 WBC 7.2 RBC 5.47 Hgb 16.2 Hct 45.7 MCV 83.4 MCH 29.5 MCHC 35.4 RDW 13.9 Plt Count 207 Neut % (Auto) 68.3 Lymph % (Auto) 23.4 L [place] % (Auto) 5.3 Eos % (Auto) 2.4 Baso % (Auto) 0.6 Neut # (Auto) 4900 Lymph # (Auto) 1700 [place] # (Auto) 400 Eos # (Auto) 200 Baso # (Auto) 0 PT 12.9 H INR 1.1 APTT 32 Sodium 139 Potassium 3.9 Chloride 100 Carbon Dioxide 27 BUN 10 Creatinine 0.67 Estimated GFR > 60 BUN/Creatinine Ratio 14.9 Glucose 91 Hemoglobin A1c Calcium 9.3 Magnesium Total Bilirubin 0.9 AST 75 H ALT 159 H Alkaline Phosphatase 67 Total Creatine Kinase CK-MB (CK-2) CK-MB (CK-2) Rel Index Troponin I Total Protein 8.2 Albumin 4.4 Globulin 3.8 Albumin/Globulin Ratio 1.2 Triglycerides Cholesterol LDL Cholesterol, Calc HDL Cholesterol Lipase 58 TSH Urine Color Urine Appearance Urine pH Ur Specific [place] Urine Protein Urine Glucose (UA) Urine Ketones Urine Occult Blood Urine Nitrate Urine Bilirubin Urine Urobilinogen Ur Leukocyte Esterase Urine RBC Urine WBC Urine Bacteria Ur Culture Indicated? Micro UA Comment U Opiates 300ng/mL cut Ur Oxycodone Screen Urine Methadone Screen Ur Barbiturates Screen U Tricyclic Antidepress Ur Phencyclidine Scrn Ur Amphetamines Screen U Methamphetamines Scrn Ur MDMA Scrn (Ecstasy) U Benzodiazepines Scrn Urine Cocaine Screen U Marijuana (THC) Screen Ethyl Alcohol SARS-CoV-2 (PCR) 08/19/22 08/19/22 08/19/22 19:58 19:58 20:08 WBC RBC Hgb Hct MCV MCH MCHC RDW Plt Count Neut % (Auto) Lymph % (Auto) [place] % (Auto) Eos % (Auto) Baso % (Auto) Neut # (Auto) Lymph # (Auto) [place] # (Auto) Eos # (Auto) Baso # (Auto) PT INR APTT Sodium Potassium Chloride Carbon Dioxide BUN Creatinine Estimated GFR BUN/Creatinine Ratio Glucose Hemoglobin A1c 5.6 Calcium Magnesium Total Bilirubin AST ALT Alkaline Phosphatase Total Creatine Kinase 137 CK-MB (CK-2) 0.55 CK-MB (CK-2) Rel Index 0.4 L Troponin I < 0.012 Total Protein Albumin Globulin Albumin/Globulin Ratio Triglycerides Cholesterol LDL Cholesterol, Calc HDL Cholesterol Lipase TSH Urine Color Urine Appearance Urine pH Ur Specific [place] Urine Protein Urine Glucose (UA) Urine Ketones Urine Occult Blood Urine Nitrate Urine Bilirubin Urine Urobilinogen Ur Leukocyte Esterase Urine RBC Urine WBC Urine Bacteria Ur Culture Indicated? Micro UA Comment U Opiates 300ng/mL cut Negative Ur Oxycodone Screen Negative Urine Methadone Screen Negative Ur Barbiturates Screen Negative U Tricyclic Antidepress Negative Ur Phencyclidine Scrn Negative Ur Amphetamines Screen Negative U Methamphetamines Scrn Negative Ur MDMA Scrn (Ecstasy) Negative U Benzodiazepines Scrn Negative Urine Cocaine Screen Negative U Marijuana (THC) Screen Negative Ethyl Alcohol < 10 SARS-CoV-2 (PCR) 08/19/22 08/19/22 08/20/22 20:08 21:21 04:59 WBC RBC Hgb Hct MCV MCH MCHC RDW Plt Count Neut % (Auto) Lymph % (Auto) [place] % (Auto) Eos % (Auto) Baso % (Auto) Neut # (Auto) Lymph # (Auto) [place] # (Auto) Eos # (Auto) Baso # (Auto) PT INR APTT Sodium Potassium Chloride Carbon Dioxide BUN Creatinine Estimated GFR BUN/Creatinine Ratio Glucose Hemoglobin A1c Calcium Magnesium Total Bilirubin AST ALT Alkaline Phosphatase Total Creatine Kinase CK-MB (CK-2) CK-MB (CK-2) Rel Index Troponin I < 0.012 Total Protein Albumin Globulin Albumin/Globulin Ratio Triglycerides Cholesterol LDL Cholesterol, Calc HDL Cholesterol Lipase TSH Urine Color Yellow Urine Appearance Clear Urine pH 7.0 Ur Specific [place] 1.010 Urine Protein Negative Urine Glucose (UA) Negative Urine Ketones Negative Urine Occult Blood Negative Urine Nitrate Negative Urine Bilirubin Negative Urine Urobilinogen 0.2 Ur Leukocyte Esterase Negative Urine RBC None seen Urine WBC None seen Urine Bacteria None seen Ur Culture Indicated? Cult not indicated Micro UA Comment Microscopic normal U Opiates 300ng/mL cut Ur Oxycodone Screen Urine Methadone Screen Ur Barbiturates Screen U Tricyclic Antidepress Ur Phencyclidine Scrn Ur Amphetamines Screen U Methamphetamines Scrn Ur MDMA Scrn (Ecstasy) U Benzodiazepines Scrn Urine Cocaine Screen U Marijuana (THC) Screen Ethyl Alcohol SARS-CoV-2 (PCR) Negative 08/20/22 08/20/22 08/20/22 04:59 04:59 04:59 WBC 6.2 RBC 5.38 Hgb 15.8 Hct 45.0 MCV 83.8 MCH 29.3 MCHC 35.0 RDW 13.9 Plt Count 190 Neut % (Auto) 58.0 Lymph % (Auto) 29.6 [place] % (Auto) 7.7 Eos % (Auto) 3.9 Baso % (Auto) 0.8 Neut # (Auto) 3600 Lymph # (Auto) 1800 [place] # (Auto) 500 Eos # (Auto) 200 Baso # (Auto) 0 PT 13.6 H INR 1.2 APTT Sodium Potassium Chloride Carbon Dioxide BUN Creatinine Estimated GFR BUN/Creatinine Ratio Glucose Hemoglobin A1c Calcium Magnesium Total Bilirubin AST ALT Alkaline Phosphatase Total Creatine Kinase CK-MB (CK-2) CK-MB (CK-2) Rel Index Troponin I Total Protein Albumin Globulin Albumin/Globulin Ratio Triglycerides 207 H Cholesterol 225 H LDL Cholesterol, Calc 158 H HDL Cholesterol 26 L Lipase TSH Urine Color Urine Appearance Urine pH Ur Specific [place] Urine Protein Urine Glucose (UA) Urine Ketones Urine Occult Blood Urine Nitrate Urine Bilirubin Urine Urobilinogen Ur Leukocyte Esterase Urine RBC Urine WBC Urine Bacteria Ur Culture Indicated? Micro UA Comment U Opiates 300ng/mL cut Ur Oxycodone Screen Urine Methadone Screen Ur Barbiturates Screen U Tricyclic Antidepress Ur Phencyclidine Scrn Ur Amphetamines Screen U Methamphetamines Scrn Ur MDMA Scrn (Ecstasy) U Benzodiazepines Scrn Urine Cocaine Screen U Marijuana (THC) Screen Ethyl Alcohol SARS-CoV-2 (PCR) 08/20/22 08/20/22 04:59 04:59 WBC RBC Hgb Hct MCV MCH MCHC RDW Plt Count Neut % (Auto) Lymph % (Auto) [place] % (Auto) Eos % (Auto) Baso % (Auto) Neut # (Auto) Lymph # (Auto) [place] # (Auto) Eos # (Auto) Baso # (Auto) PT INR APTT Sodium 140 Potassium 3.6 Chloride 101 Carbon Dioxide 27 BUN 10 Creatinine 0.70 Estimated GFR > 60 BUN/Creatinine Ratio 14.3 Glucose 87 Hemoglobin A1c Calcium 9.2 Magnesium 1.8 Total Bilirubin 1.1 AST 68 H ALT 153 H Alkaline Phosphatase 59 Total Creatine Kinase CK-MB (CK-2) CK-MB (CK-2) Rel Index Troponin I Total Protein 7.6 Albumin 4.1 Globulin 3.5 Albumin/Globulin Ratio 1.2 Triglycerides Cholesterol LDL Cholesterol, Calc HDL Cholesterol Lipase TSH 1.51 Urine Color Urine Appearance Urine pH Ur Specific [place] Urine Protein Urine Glucose (UA) Urine Ketones Urine Occult Blood Urine Nitrate Urine Bilirubin Urine Urobilinogen Ur Leukocyte Esterase Urine RBC Urine WBC Urine Bacteria Ur Culture Indicated? Micro UA Comment U Opiates 300ng/mL cut Ur Oxycodone Screen Urine Methadone Screen Ur Barbiturates Screen U Tricyclic Antidepress Ur Phencyclidine Scrn Ur Amphetamines Screen U Methamphetamines Scrn Ur MDMA Scrn (Ecstasy) U Benzodiazepines Scrn Urine Cocaine Screen U Marijuana (THC) Screen Ethyl Alcohol SARS-CoV-2 (PCR) [facility] Medical History (Updated 08/20/22 @ 00:10 by MARGARITA Krishna) GERD (gastroesophageal reflux disease) BEY (nonalcoholic steatohepatitis) Family History (Updated 08/20/22 @ 00:11 by MARGARITA Krishna) Other Adopted Social History household members: significant other Smoking Status: Never smoker Discharge Plan Discharge Plan Patient Disposition: Home Provider Discharge Comment: you were admitted to the hospital with symptoms of a possible stroke. MRI showed a normal brain, ultrasound of your heart also showed a normal heart. There appears to be a link between stroke risk and COVID, for now I recommend treating this like a TIA or ministroke out of an abundance of precaution. You can revisit the aspirin and stating medications with your PCP in the coming months depending on ongoing symptoms. Discharge orders & Medications Prescriptions: New aspirin 81 mg Tablet,Delayed Release (Dr/Ec) 81 mg PO DAILY 90 Days Qty: 90 0RF atorvastatin 40 mg tablet 40 mg PO BEDTIME 90 Days Qty: 90 0RF Continued fexofenadine 180 MG tablet 180 mg PO QDAY Qty: 0 omeprazole 20 mg tablet,delayed release (DR/EC) 40 mg PO DAILY Qty: 60 0RF ondansetron 4 mg tablet,disintegrating 4 mg PO Q6-8H PRN (Reason: nausea and vomiting) Qty: 10 0RF sucralfate [Carafate] 1 gram tablet 1 g PO BID PRN (Reason: heartburn) Qty: 30 0RF hydrocodone-acetaminophen 5-325 mg tablet 1 tab PO TID PRN (Reason: pain) Qty: 10 0RF hydroxyzine HCl 25 mg tablet 25 mg PO TID PRN (Reason: anxiety/nausea) Qty: 20 0RF Follow up/Referrals: Raiza Balderas ARNP [Primary Care Provider] - Diet/Activity/Treatments Diet: Diet as Tolerated Activity: As tolerated Visit Report/Discharge Packet Stand Alone Forms: Patient Portal/API, Stroke Signs & Symptoms Discharge Data Primary Care Provider: Raiza Balderas Attending Provider: Savanah Michel
== END 2022-08-20 17:34 | disposition home or self-care (01) ==
LOC: ED 22:33 → AC 22:38
PROVIDERS: Admitting Provider Nurse Practitioner Family; Emergency Provider Emergency Medicine; PCP Nurse Practitioner Family; Referring Provider Emergency Medicine; Visit Provider Nurse Practitioner Family
DX: G45.9 Transient cerebral ischemic attack, unspecified (principal); R11.2 Nausea with vomiting, unspecified; R19.7 Diarrhea, unspecified; F41.9 Anxiety disorder, unspecified; R29.700 NIHSS score 0; E78.5 Hyperlipidemia, unspecified; I10 Essential (primary) hypertension; Z20.822 Contact with and (suspected) exposure to COVID-19
CPT/HCPCS: 36415; 70450; 70496; 70498; 72141; 80053; 80061; 80305; 80320; 81001; 81003; 82550; 82553; 82962; 83036; 83690; 83735; 84443; 84484; 85025; 85610; 85730; 87635; 93005; 93010; 93306; 96372; 96374; 97165; 99285; C9803; G0378; J1650; J2060; Q9957; Q9967